=== PATIENT | male | born 1940 | race Caucasian/White ===

== ENCOUNTER 2023-06-02 10:55 | Inpatient (IN) | payer MEDICARE ==
--- NOTE | 2023-06-02 11:27 | ED ---
SOB HPI - General Source: patient Mode of arrival: ambulatory Limitations: no limitations <Bonnie Castillo - Last Filed: 06/02/23 11:17> <Iggy Pena - Last Filed: 06/03/23 07:13> - General Chief Complaint: Shortness of Breath Stated Complaint: sob Time Seen by Provider: 06/02/23 11:12 - History of Present Illness Initial Comments: Patient is 82 year old CM presenting with complaints of continued shortness of breath ongoing since 05/24/23 when he had COVID. He also complains of weight gain, activity intolerance, and lower extremity swelling. He did recently travel. He denies any chest pain, abdominal pain, nausea, vomiting, headache, dizziness, fevers or chills. (Bonnie Castillo) This is a 82-year-old male who has not followed up with in years. Patient states he had COVID at the beginning of May and ever since then he's been feeling generally tired and much more short of breath and all of a sudden he is accumulated fluid in his legs and his abdomen. Patient denies chest pain or palpitations but he does state that the shortness of breath is getting progressively worse. Patient denies any headache patient denies lightheadedness or dizziness. Patient denies any fever chills. Patient denies any abdominal pain patient denies nausea vomiting. Patient denies any history of kidney disease (Iggy Pena) - Related Data Home Medications Medication Instructions Recorded Confirmed Azithromycin [Zithromax Z Pack] See Taper PO DIRECTED 06/02/23 06/02/23 Famotidine [Pepcid] 20 mg PO BID 06/02/23 06/02/23 Allergies Allergy/AdvReac Type Severity Reaction Status Date / Time No Known Allergies Allergy Verified 06/02/23 14:44 Review of Systems ROS Other: All systems not noted in ROS Statement are negative. <Bonnie Castillo - Last Filed: 06/02/23 11:17> ROS Other: All systems not noted in ROS Statement are negative. <Iggy Pena - Last Filed: 06/03/23 07:13> ROS Statement: Those systems with pertinent positive or pertinent negative responses have been documented in the HPI. Past Medical History Past Medical History: No Reported History History of Any Multi-Drug Resistant Organisms: None Reported Past Surgical History: No Surgical Hx Reported Past Psychological History: No Psychological Hx Reported Smoking Status: Never smoker Past Alcohol Use History: Occasional Past Drug Use History: None Reported <Ravenna,Bonnie - Last Filed: 06/02/23 11:17> General Exam Limitations: no limitations <JonathanAngela - Last Filed: 06/02/23 11:17> <Iggy Pena - Last Filed: 06/03/23 07:13> - General Exam Comments Initial Comments: Visual Physical Exam Vital signs reviewed General: Well-appearing, nontoxic, no acute distress. Head: Normocephalic, atraumatic Eyes: PERRLA, EOMI ENT: Airway patent Chest: Nonlabored breathing Skin: No visual rash, normal skin tone Neuro: Alert and oriented 3 Musculoskeletal: No gross abnormalities I performed with the Quicknote portion Bonnie Castillo EXPORT PACKER-c (Bonnie Castillo) GENERAL: Patient is well-developed and well-nourished. Patient is nontoxic and well- hydrated and is in mild distress. ENT: Neck is soft and supple. No significant lymphadenopathy is noted. Oropharynx is clear. Moist mucous membranes. Neck has full range of motion without eliciting any pain. EYES: The sclera were anicteric and conjunctiva were pink and moist. Extraocular movements were intact and pupils were equal round and reactive to light. Eyelids were unremarkable. PULMONARY: Patient is decreased breath sounds on the right CARDIOVASCULAR: There is a regular rate and rhythm without any murmurs gallops or rubs. ABDOMEN: Soft and nontender with normal bowel sounds. SKIN: Skin is clear with no lesions or rashes and otherwise unremarkable. NEUROLOGIC: Patient is alert and oriented x3. Cranial nerves II through XII are grossly intact. Motor and sensory are also intact. Normal speech, volume and content. Symmetrical smile. MUSCULOSKELETAL: Normal extremities with adequate strength and full range of motion. 2+ edema LYMPHATICS: No significant lymphadenopathy is noted PSYCHIATRIC: Normal psychiatric evaluation. (Iggy Pena) Course Vital Signs 06/02/23 06/02/23 06/02/23 11:06 14:32 14:57 Temperature 98 F Pulse Rate 90 84 75 Respiratory 20 19 20 Rate Blood Pressure 190/44 173/90 O2 Sat by Pulse 95 97 Oximetry 06/02/23 06/02/2323 16:30 18:20 19:00 Temperature 97.3 F L Pulse Rate 77 80 57 L Respiratory 22 18 20 Rate Blood Pressure 158/95 161/88 148/80 O2 Sat by Pulse 97 96 95 Oximetry 06/02/23 06/02/23 06/02/23 20:00 21:00 23:28 Temperature Pulse Rate 61 70 69 Respiratory 20 20 19 Rate Blood Pressure 108/75 145/57 133/74 O2 Sat by Pulse 97 98 Oximetry 06/03/23 06/03/23 06/03/23 00:52 02:07 03:38 Temperature Pulse Rate 75 72 Respiratory 19 19 Rate Blood Pressure 145/88 139/72 140/60 O2 Sat by Pulse 97 97 Oximetry 06/03/23 06/03/23 06/03/23 04:41 05:16 06:00 Temperature Pulse Rate 76 54 L 46 L Respiratory 17 17 Rate Blood Pressure 131/40 131/70 134/66 O2 Sat by Pulse 96 96 Oximetry Medical Decision Making - Lab Data Result diagrams: 06/03/23 03:15 06/02/23 21:35 <Iggy Pena - Last Filed: 06/03/23 07:13> - Medical Decision Making EKG was interpreted by myself EKG shows atrial fibrillation at a rate of 72 bpm QRS is under 4 QT interval is 393 QTC is 417. Patient's EKG shows no ST segment elevation or depression Was pt. sent in by a medical professional or institution (, PA, EXPORT PACKER, urgent care, hospital, or senior living...) When possible be specific @ -[No] Did you speak to anyone other than the patient for history (EMS, parent, family, police, friend...)? What history was obtained from this source @ - gave some of the history Did you review nursing and triage notes (agree or disagree)? Why? @ -[I reviewed and agree with nursing and triage notes] Were old charts reviewed (outside hosp., previous admission, EMS record, old EKG, old radiological studies, urgent care reports/EKG's, senior living records)? Report findings @ -[No old charts were reviewed] Differential Diagnosis (chest pain, altered mental status, abdominal pain women, abdominal pain men, vaginal bleeding, weakness, fever, dyspnea, syncope, headache, dizziness, GI bleed, back pain, seizure, CVA, palpatations, mental health, musculoskeletal)? @ -Differential dyspnea EKG interpreted by me (3pts min.). @ -[As above] X-rays interpreted by me (1pt min.). @ -Chest x-ray shows a right-sided infiltrate with pleural effusion CT interpreted by me (1pt min.). @ -[None done] U/S interpreted by me (1pt. min.). @ -[None done] What testing was considered but not performed or refused? (CT, X-rays, U/S, labs)? Why? @ -[None] What meds were considered but not given or refused? Why? @ -[None] Did you discuss the management of the patient with other professionals (professionals i.e. , PA, EXPORT PACKER, lab, RT, psych nurse, web content & social media manager, instrumentation and controls designer, teacher, mobile patrol officer, case finisher)? Give summary @ -I spoke with the [facility] as well as multiple punch press operator I will admit the patient Was smoking cessation discussed for >3mins.? @ -[No] Was critical care preformed (if so, how long)? @ -[No] Were there social determinants of health that impacted care today? How? (Homelessness, low income, unemployed, alcoholism, drug addiction, transportation, low edu. Level, literacy, decrease access to med. care, fci, rehab)? @ -[No] Was there de-escalation of care discussed even if they declined (Discuss DNR or withdrawal of care, Hospice)? DNR status @ -[No] What co-morbidities impacted this encounter? (DM, HTN, Smoking, COPD, CAD, Cancer, CVA, ARF, Chemo, Hep., AIDS, mental health diagnosis, sleep apnea, morbid obesity)? @ -[None] Was patient admitted / discharged? Hospital course, mention meds given and route, prescriptions, significant lab abnormalities, going to OR and other pe rtinent info. @ -Patient is in A. fib is new onset patient also has renal failure and hypokalemia and hyponatremia. Patient will be admitted I consult nephrology. And I spoke to Mr. hospitalist agreed to accept the admission. Undiagnosed new problem with uncertain prognosis? @ -[No] Drug Therapy requiring intensive monitoring for toxicity (Heparin, Nitro, Insulin, Cardizem)? @ -[No] Were any procedures done? @ -[No] Diagnosis/symptom? @ -New-onset A. fib Acute, or Chronic, or Acute on Chronic? @ -Acute Uncomplicated (without systemic symptoms) or Complicated (systemic symptoms)? @ -Complicated Side effects of treatment? @ -[No] Exacerbation, Progression, or Severe Exacerbation? @ -[No] Poses a threat to life or bodily function? How? (Chest pain, [place], GA, pneumonia, PE, COPD, DKA, ARF, appy, cholecystitis, CVA, Diverticulitis, Homicidal, Suicidal, threat to staff... and all critical care pts) @ -Yes this could lead to poor perfusion and and organ dysfunction Diagnosis/symptom? @ -Acute renal failure Acute, or Chronic, or Acute on Chronic? @ -Acute Uncomplicated (without systemic symptoms) or Complicated (systemic symptoms)? @ -Complicated Side effects of treatment? @ -[none] Exacerbation, Progression, or Severe Exacerbation] @ -[no] Poses a threat to life or bodily function? @ -Yes this could lead to electrolyte abnormalities and Diagnosis/symptom? @ -Pneumonia Acute, or Chronic, or Acute on Chronic? @ -Acute Uncomplicated (without systemic symptoms) or Complicated (systemic symptoms)? @ -Complicated Side effects of treatment? @ -[none] Exacerbation, Progression, or Severe Exacerbation] @ -[no] Poses a threat to life or bodily function? @ -Yes this could lead to sepsis and end organ dysfunction (Iggy Pena) - Lab Data Lab Results 06/02/23 06/02/23 06/02/23 Range/Units 11:38 11:38 14:09 WBC 19.9 H (3.8-10.6) k/uL RBC 4.28 L (4.30-5.90) m/uL Hgb 14.0 (13.0-17.5) gm/dL Hct 41.8 (39.0-53.0) % MCV 97.6 (80.0-100.0) fL MCH 32.7 (25.0-35.0) pg MCHC 33.5 (31.0-37.0) g/dL RDW 13.7 (11.5-15.5) % Plt Count 419 (150-450) k/uL MPV 8.8 Neutrophils % 94 % Lymphocytes % 2 % Monocytes % 4 % Eosinophils % 0 % Basophils % 0 % Neutrophils # 18.7 H (1.3-7.7) k/uL Lymphocytes # 0.4 L (1.0-4.8) k/uL Monocytes # 0.7 (0-1.0) k/uL Eosinophils # 0.1 (0-0.7) k/uL Basophils # 0.0 (0-0.2) k/uL PT 11.8 (9.0-12.0) sec INR 1.1 (<1.2) APTT 28.0 (22.0-30.0) sec D-Dimer 10.69 H (<0.60) mg/L FEU Sodium 121 L (137-145) mmol/L Potassium 4.7 (3.5-5.1) mmol/L Chloride 87 L (98-107) mmol/L Carbon Dioxide 6 L* (22-30) mmol/L Anion Gap 28 mmol/L BUN 181 H* (9-20) mg/dL Creatinine 16.79 H* (0.66-1.25) mg/dL Est GFR (CKD-EPI)AfAm 3 (>60 ml/min/1.73 sqM) Est GFR (CKD-EPI)NonAf 2 (>60 ml/min/1.73 sqM) Glucose 120 H (74-99) mg/dL Calcium 8.8 (8.4-10.2) mg/dL Magnesium 2.8 H (1.6-2.3) mg/dL Total Bilirubin 0.8 (0.2-1.3) mg/dL AST 22 (17-59) U/L ALT 24 (4-49) U/L Alkaline Phosphatase 136 H (38-126) U/L Troponin I (0.000-0.034) ng/mL NT-Pro-B Natriuret Pep 4180 pg/mL Total Protein 7.2 (6.3-8.2) g/dL Albumin 3.5 (3.5-5.0) g/dL 06/02/23 Range/Units 14:09 WBC (3.8-10.6) k/uL RBC (4.30-5.90) m/uL Hgb (13.0-17.5) gm/dL Hct (39.0-53.0) % MCV (80.0-100.0) fL MCH (25.0-35.0) pg MCHC (31.0-37.0) g/dL RDW (11.5-15.5) % Plt Count (150-450) k/uL MPV Neutrophils % % Lymphocytes % % Monocytes % % Eosinophils % % Basophils % % Neutrophils # (1.3-7.7) k/uL Lymphocytes # (1.0-4.8) k/uL Monocytes # (0-1.0) k/uL Eosinophils # (0-0.7) k/uL Basophils # (0-0.2) k/uL PT (9.0-12.0) sec INR (<1.2) APTT (22.0-30.0) sec D-Dimer (<0.60) mg/L FEU Sodium (137-145) mmol/L Potassium (3.5-5.1) mmol/L Chloride (98-107) mmol/L Carbon Dioxide (22-30) mmol/L Anion Gap mmol/L BUN (9-20) mg/dL Creatinine (0.66-1.25) mg/dL Est GFR (CKD-EPI)AfAm (>60 ml/min/1.73 sqM) Est GFR (CKD-EPI)NonAf (>60 ml/min/1.73 sqM) Glucose (74-99) mg/dL Calcium (8.4-10.2) mg/dL Magnesium (1.6-2.3) mg/dL Total Bilirubin (0.2-1.3) mg/dL AST (17-59) U/L ALT (4-49) U/L Alkaline Phosphatase (38-126) U/L Troponin I 0.030 (0.000-0.034) ng/mL NT-Pro-B Natriuret Pep pg/mL Total Protein (6.3-8.2) g/dL Albumin (3.5-5.0) g/dL Disposition <Bonnie Castillo - Last Filed: 06/02/23 11:17> Time of Disposition: 14:31 <Iggy Pena - Last Filed: 06/03/23 07:13> Clinical Impression: New onset a-fib, Acute renal failure, Hypokalemia, Hypomagnesemia, Urinary retention Disposition: ADMITTED IP TO THIS HOSP
[2023-06-02 11:59] LABS: Basophils % (A) 0 %; Eosinophils # (A) 0.1 k/uL (0-0.7); Eosinophils % (A) 0 %; HCT 41.8 % (39.0-53.0); Lymphocytes # (A) 0.4 k/uL (1.0-4.8); Lymphocytes % (A) 2 %; MCH 32.7 pg (25.0-35.0); MCHC 33.5 g/dL (31.0-37.0); MCV 97.6 fL (80.0-100.0); Mean Platelet Volume 8.8; Monocytes # (A) 0.7 k/uL (0-1.0); Monocytes % (A) 4 %; Neutrophils # (A) 18.7 k/uL (1.3-7.7); Neutrophils % (A) 94 %; Platelet Count 419 k/uL (150-450); RBC 4.28 m/uL (4.30-5.90); RDW 13.7 % (11.5-15.5); WBC 19.9 k/uL (3.8-10.6)
--- NOTE | 2023-06-02 12:04 | XR ---
EXAMINATION TYPE: XR chest 2V DATE OF EXAM: 06/02/2023 COMPARISON: NONE TECHNIQUE: PA and lateral views submitted. HISTORY: Chest pain FINDINGS: Right lower lobe consolidation and small effusion. Heart is enlarged. There is no pneumothorax. Hyper inflation suggests COPD. Osseous structures demonstrate hypertrophic and degenerative changes of the spine. Arthropathy of the shoulders. Linear changes left lung base most typical of atelectasis. IMPRESSION: 1. A right lower lobe infiltrate correlate for pneumonia.
[2023-06-02 12:16] LABS: ALT 24 U/L (4-49); AST 22 U/L (17-59); Albumin 3.5 g/dL (3.5-5.0); Alkaline Phosphatase 136 U/L (38-126); Anion Gap 28 mmol/L; Calcium 8.8 mg/dL (8.4-10.2); Chloride 87 mmol/L (98-107); Glucose 120 mg/dL (74-99); Magnesium 2.8 mg/dL (1.6-2.3); Potassium 4.7 mmol/L (3.5-5.1); Sodium 121 mmol/L (137-145); Total Bilirubin 0.8 mg/dL (0.2-1.3); Total Protein 7.2 g/dL (6.3-8.2)
[2023-06-02 12:21] LABS: African American GFR (CKD) 3 (>60 ml/min/1.73 sqM); Non-African American GFR(CKD) 2 (>60 ml/min/1.73 sqM)
[2023-06-02 12:23] LABS: NT-Pro-B-Type Natriuretic Pept 4180 pg/mL
[2023-06-02 12:29] LABS: Blood Urea Nitrogen 181 mg/dL (9-20); Carbon Dioxide 6 mmol/L (22-30)
[2023-06-02] MEDS ORDERED: cefTRIAXone IN SWFI 1,000 MG/10 ML SYRINGE IVP STA (14:10)
[2023-06-02] MEDS ORDERED: SODIUM BICARB 8.4% 50 ML SYR (1 MEQ/ML) IV STA (14:32)
[2023-06-02] MEDS ORDERED: PNEUMONIA PROTOCOL UTILIZED 1 EACH MISC PO PRN (14:33)
[2023-06-02] MEDS ORDERED: AZITHROMYCIN 500 MG in SODIUM CHLORIDE 0.9% 250 ML IVPB STA (14:33)
[2023-06-02 15:23] LABS: INR 1.1 (<1.2); Prothrombin Time 11.8 sec (9.0-12.0)
[2023-06-02] MEDS ORDERED: HEPARIN SODIUM 1,000 UN/ML (10ML VL) IV ONE (15:30)
[2023-06-02] MEDS ORDERED: HEPARIN SOD,PORK IN 0.45% NACL 25,000 UNIT in 0.45% NACL 1 250ML.BAG IV SCH (15:30)
[2023-06-02] MEDS ORDERED: DEXTROSE 5% IN WATER 1,000 ML with SODIUM BICARB (1 MEQ/ML) 150 ML IV ONE (16:00)
[2023-06-02 22:06] LABS: ALT 22 U/L (4-49); AST 21 U/L (17-59); Albumin 2.9 g/dL (3.5-5.0); Alkaline Phosphatase 113 U/L (38-126); Anion Gap 20 mmol/L; Calcium 8.3 mg/dL (8.4-10.2); Carbon Dioxide 13 mmol/L (22-30); Chloride 94 mmol/L (98-107); Glucose 105 mg/dL (74-99); Potassium 3.8 mmol/L (3.5-5.1); Sodium 127 mmol/L (137-145); Total Bilirubin 0.7 mg/dL (0.2-1.3); Total Protein 6.3 g/dL (6.3-8.2)
[2023-06-02 22:12] LABS: African American GFR (CKD) 3 (>60 ml/min/1.73 sqM); Non-African American GFR(CKD) 3 (>60 ml/min/1.73 sqM)
[2023-06-02 22:15] LABS: Blood Urea Nitrogen 160 mg/dL (9-20)
--- NOTE | 2023-06-02 23:15 | ED ---
SOB HPI - General Chief Complaint: Shortness of Breath Stated Complaint: sob Time Seen by Provider: 06/02/23 11:12 Source: patient Mode of arrival: ambulatory Limitations: no limitations - History of Present Illness Initial Comments: Patient is an 82 yo CM presenting to the ER for complaints of increased shortness of breath ongoing since having COVID on May 24, 2023 along with decreased activity intolerance, weight gain and lower extremity swelling. He denies any chest pain, abdominal pain, nausea, vomiting, diaphoresis, headache, dizziness, fevers or chills. - Related Data Allergies Allergy/AdvReac Type Severity Reaction Status Date / Time No Known Allergies Allergy Verified 06/02/23 11:10 Review of Systems ROS Statement: Those systems with pertinent positive or pertinent negative responses have been documented in the HPI. ROS Other: All systems not noted in ROS Statement are negative. Past Medical History Past Medical History: No Reported History History of Any Multi-Drug Resistant Organisms: None Reported Past Surgical History: No Surgical Hx Reported Past Psychological History: No Psychological Hx Reported Smoking Status: Never smoker Past Alcohol Use History: Occasional Past Drug Use History: None Reported General Exam Limitations: no limitations Course Vital Signs 06/02/23 11:06 Temperature 98 F Pulse Rate 90 Respiratory 20 Rate Blood Pressure 190/44 O2 Sat by Pulse 95 Oximetry Disposition Referrals: None,Stated [Primary Care Provider] - 1-2 days
[2023-06-03] MEDS ORDERED: HEPARIN SODIUM 1,000 UN/ML (10ML VL) IV PRN (00:56)
[2023-06-03] MEDS ORDERED: ACETAMINOPHEN TAB 325 MG TAB PO PRN (00:57)
[2023-06-03] MEDS ORDERED: ONDANSETRON 4 MG/2 ML VIAL IVP PRN (00:58)
[2023-06-03] MEDS ORDERED: HEPARIN SOD,PORK IN 0.45% NACL 25,000 UNIT in 0.45% NACL 1 250ML.BAG IV SCH (01:00)
--- NOTE | 2023-06-03 02:24 | P.HPIM ---
History of Present Illness H&P Date: 06/02/23 Chief Complaint: Weight gain and leg swelling Patient is a 82-year-old male without significant past medical history and recent COVID-19 infection since 05/24/2023 presents to ER with complaints of generalized weakness, loss of appetite, increased leg swelling and weight gain and shortness of breath. Patient denies any complaints of fever or chills. No nausea vomiting abdominal pain or diarrhea. Denies any dizziness or lightheadedness. Patient is not on follow-up with primary care physician for several years. Since COVID-19 infection recently patient has been having shortness of breath and worsening leg swelling and increased abdominal girth. Denies any palpitatio ns. No dizziness or lightheadedness. No palpitations. Patient is also having decreased urine output. No prior history of chronic kidney disease. Chest x-ray showed right lower lobe infiltrate correlate for pneumonia. Laboratory data showed WBC 19.9 hemoglobin 14.0 and platelets 419 neutrophils 1 8.7 Sodium 121 potassium 4.7 chloride 87 bicarb is 6 BUN 181 and creatinine 16.7 and blood sugar is 120 Magnesium 2.8 and alk phos 136 and proBNP 4180 and troponin 0.030 and albumin 3.5. D-dimer is 10.69 EKG showed atrial fibrillation with aberrant conduction or ventricular premature complexes. Acute kidney injury. Possibly ATN. Anion gap metabolic acidosis Hyponatremia likely hypovolemic hypoosmolar New onset atrial fibrillation Elevated BNP level 4180 Recent COVID-19 infection since 05/24/2023 Generalized weakness, weight gain and leg swelling and shortness of breath Right lower lobe pneumonia DVT prophylaxis patient is already on heparin drip Plan: Patient will be continued on bicarb drip and gentle IV hydration. Patient was started on heparin drip due to new onset atrial fibrillation. Continuous telemetry monitoring. Continue with antibiotics azithromycin and ceftriaxone and follow-up procalcitonin level. Ultrasound renal was ordered. Continue to monitor CBC and BMP. Cardiology and nephrology was consulted for further evaluation. Prognosis is guarded at this time. Past Medical History Past Medical History: No Reported History History of Any Multi-Drug Resistant Organisms: None Reported Past Surgical History: No Surgical Hx Reported Past Psychological History: No Psychological Hx Reported Smoking Status: Never smoker Past Alcohol Use History: Occasional Past Drug Use History: None Reported Medications and Allergies Home Medications Medication Instructions Recorded Confirmed Type Azithromycin [Zithromax Z Pack] See Taper PO DIRECTED 06/02/23 06/02/23 History Famotidine [Pepcid] 20 mg PO BID 06/02/23 06/02/23 History Allergies Allergy/AdvReac Type Severity Reaction Status Date / Time No Known Allergies Allergy Verified 06/02/23 14:44 Physical Exam Vitals: Vital Signs Temp Pulse Resp BP Pulse Ox 06/02/23 18:20 80 18 161/88 96 06/02/23 16:30 97.3 F L 77 22 158/95 97 06/02/23 14:57 75 20 173/90 97 06/02/23 11:06 98 F 90 20 190/44 95 Intake and Output 06/02/23 06/02/23 06/02/23 06:59 14:59 22:59 Output Total 3800 Balance -3800 Output: Urine 3800 Other: Weight 79.379 kg Results CBC & Chem 7: 06/02/23 11:38 06/02/23 21:35 Labs: Abnormal Lab Results - Last 24 Hours (Table) 06/02/23 06/02/23 06/02/23 Range/Units 11:38 11:38 14:09 WBC 19.9 H (3.8-10.6) k/uL RBC 4.28 L (4.30-5.90) m/uL Neutrophils # 18.7 H (1.3-7.7) k/uL Lymphocytes # 0.4 L (1.0-4.8) k/uL D-Dimer 10.69 H (<0.60) mg/L FEU Sodium 121 L (137-145) mmol/L Chloride 87 L (98-107) mmol/L Carbon Dioxide 6 L* (22-30) mmol/L BUN 181 H* (9-20) mg/dL Creatinine 16.79 H* (0.66-1.25) mg/dL Glucose 120 H (74-99) mg/dL Magnesium 2.8 H (1.6-2.3) mg/dL Alkaline Phosphatase 136 H (38-126) U/L Thrombosis Risk Factor Assmnt - DVT/VTE Prophylaxis DVT/VTE Prophylaxis: Pharmacologic Prophylaxis ordered Assessment and Plan Time with Patient: Greater than 30
[2023-06-03 03:35] LABS: Basophils % (A) 0 %; Eosinophils # (A) 0.1 k/uL (0-0.7); Eosinophils % (A) 1 %; HCT 36.1 % (39.0-53.0); HGB 12.5 gm/dL (13.0-17.5); Lymphocytes # (A) 0.5 k/uL (1.0-4.8); Lymphocytes % (A) 2 %; MCH 33.2 pg (25.0-35.0); MCHC 34.6 g/dL (31.0-37.0); MCV 95.9 fL (80.0-100.0); Mean Platelet Volume 8.1; Monocytes % (A) 5 %; Neutrophils # (A) 18.1 k/uL (1.3-7.7); Neutrophils % (A) 91 %; Platelet Count 344 k/uL (150-450); RBC 3.77 m/uL (4.30-5.90); RDW 13.3 % (11.5-15.5); WBC 19.9 k/uL (3.8-10.6)
[2023-06-03 06:48] LABS: Glucose,Whole Blood 120 mg/dL (70-110)
[2023-06-03 07:59] LABS: Basophils % (A) 0 %; Eosinophils # (A) 0.1 k/uL (0-0.7); Eosinophils % (A) 1 %; HCT 36.1 % (39.0-53.0); HGB 12.4 gm/dL (13.0-17.5); Lymphocytes # (A) 0.4 k/uL (1.0-4.8); Lymphocytes % (A) 2 %; MCHC 34.2 g/dL (31.0-37.0); MCV 96.3 fL (80.0-100.0); Monocytes # (A) 0.8 k/uL (0-1.0); Monocytes % (A) 4 %; Neutrophils # (A) 16.1 k/uL (1.3-7.7); Neutrophils % (A) 92 %; Platelet Count 354 k/uL (150-450); RBC 3.75 m/uL (4.30-5.90); RDW 13.2 % (11.5-15.5); WBC 17.5 k/uL (3.8-10.6)
[2023-06-03 08:11] LABS: African American GFR (CKD) 8 (>60 ml/min/1.73 sqM); Anion Gap 16 mmol/L; Calcium 8.1 mg/dL (8.4-10.2); Carbon Dioxide 16 mmol/L (22-30); Chloride 103 mmol/L (98-107); Glucose 105 mg/dL (74-99); Non-African American GFR(CKD) 7 (>60 ml/min/1.73 sqM); Sodium 135 mmol/L (137-145)
--- NOTE | 2023-06-03 08:17 | XR ---
EXAMINATION TYPE: XR chest 1V portable DATE OF EXAM: 06/03/2023 COMPARISON: 06/02/2023 HISTORY: Cough TECHNIQUE: Single frontal view of the chest is obtained. FINDINGS: Diffuse interstitial pattern of the right lower lobe consolidation. Subsegmental changes l eft lung base. Tiny right effusion. Heart is enlarged. Atherosclerotic change aorta. Underlying COPD. No pneumothorax. Diffuse osteopenia noted throughout the shoulders. Degenerative changes. IMPRESSION: 1. Dense stable right lower lobe infiltrate and small effusion. There is interstitial pattern on toda y's exam which may be technical rather than representing interval development of CHF correlate clinic ally.
--- NOTE | 2023-06-03 08:22 | US ---
EXAMINATION TYPE: US kidneys/renal and bladder DATE OF EXAM: 06/03/2023 COMPARISON: NONE CLINICAL INDICATION: Male, 82 years old with history of JEANIE; JEANIE EXAM MEASUREMENTS: Right Kidney: 12.6 x 7.1 x 5.8 cm Left Kidney: 13.4 x 7.3 x 6.3 cm Right Kidney: Kidney enlarged, Dilated renal pelvis, with mild hydro Left Kidney: Kidney enlarged, dilated renal pelvis Bladder: [place] distended with cath in place, diverticula, large mass vs. debris at dependent portion Bilateral Jets seen: No IMPRESSION: Mild bilateral hydronephrosis. There appears to be evidence of large mass dependent portion of the bl adder correlate clinically.
[2023-06-03 08:40] LABS: Blood Urea Nitrogen 124 mg/dL (9-20)
[2023-06-03 08:43] LABS: Potassium 3.5 mmol/L (3.5-5.1)
[2023-06-03] MEDS: AZITHROMYCIN 500 MG TAB PO SCH (10:12)
[2023-06-03] MEDS ORDERED: POTASSIUM CHLORIDE ER 20 MEQ TAB.ER PO STA (11:09)
[2023-06-03 12:23] LABS: Phosphorus 5.6 mg/dL (2.5-4.5)
--- NOTE | 2023-06-03 12:52 | NM ---
EXAMINATION TYPE: NM pul vent and perfuse DATE OF EXAM: 06/03/2023 CLINICAL INDICATION: Male, 82 years old with history of SOB, elevated D-dimer.; HISTORY: Shortness of breath TECHNIQUE: Utilizing inhalation of 68.9 mCi Tc 99m DTPA aerosol and intravenous injection of 5.2 mCi of Tc 99m MAA, ventilation and perfusion images are acquired post injection in multiple projections. FINDINGS: There is central distribution of radiotracer compatible with COPD. There are a few matched defects se en within the periphery of the lungs. No perfusion mismatch is identified. IMPRESSION: Low probability for pulmonary embolism.
--- NOTE | 2023-06-03 12:57 | P.NPCON ---
History of Present Illness - Reason for Consult acute renal failure - History of Present Illness Patient is an 82-year-old male with no significant past medical history. He is admitted to the hospital with complaints of increased weakness and loss of appetite. Patient stated that he was also slightly more short of breath. There is history of recent COVID-19 infection on 05/24/2023. Patient denied any urinary symptoms There is no history of prostatic issues. Patient is noted to have a serum creatinine of 16.7 on initial admission. A Shaikh catheter was placed and patient had 3.8 L of urine on initial Shaikh catheter placement. About 7.9 L of urine documented. Currently urine is bloody. Ultrasound shows evidence of bilateral hydronephrosis. No previous labs available for comparison. Patient is currently maintained on bicarb drip. He states he is feeling better. Blood pressure was not low. No history of use of NSAIDs. Review of Systems As per HPI Past Medical History Past Medical History: No Reported History Additional Past Medical History / Comment(s): new afib. this admission (06/03/23) History of Any Multi-Drug Resistant Organisms: None Reported Past Surgical History: Appendectomy Additional Past Surgical History / Comment(s): claudia. catearact surg. Past Anesthesia/Blood Transfusion Reactions: No Reported Reaction Additional Past Anesthesia/Blood Transfusion Reaction / Comment(s): never received transfusion Past Psychological History: No Psychological Hx Reported Smoking Status: Never smoker Past Alcohol Use History: Occasional Past Drug Use History: None Reported - Past Family History Father Family Medical History: CVA/TIA Mother Family Medical History: Myocardial Infarction ([place]) Medications and Allergies Home Medications Medication Instructions Recorded Confirmed Type Azithromycin [Zithromax Z Pack] See Taper PO DIRECTED 06/02/23 06/02/23 History Famotidine [Pepcid] 20 mg PO BID 06/02/23 06/02/23 History Allergies Allergy/AdvReac Type Severity Reaction Status Date / Time No Known Allergies Allergy Verified 06/02/23 14:44 Physical Exam Vitals: Vital Signs Temp Pulse Pulse Resp BP BP Pulse Ox 06/03/23 08:00 98.1 F 80 22 148/76 95 06/03/23 07:00 97.2 F L 54 L 22 159/80 95 06/03/23 06:00 46 L 17 134/66 96 06/03/23 05:16 54 L 17 131/70 96 06/03/23 04:41 76 131/40 06/03/23 03:38 140/60 06/03/23 02:07 72 19 139/72 97 06/03/23 00:52 75 19 145/88 97 06/02/23 23:28 69 19 133/74 06/02/23 21:00 70 20 145/57 98 06/02/23 20:00 61 20 108/75 97 06/02/23 19:00 57 L 20 148/80 95 06/02/23 18:20 80 18 161/88 96 06/02/23 16:30 97.3 F L 77 22 158/95 97 06/02/23 14:57 75 20 173/90 97 06/02/23 14:32 84 19 Intake and Output 06/02/23 06/03/23 06/03/23 22:59 06:59 14:59 Intake Total 82.156 300 Output Total 3800 4150 1900 Balance -3717.844 -4150 -1600 Intake: IV 300 Dextrose 5% in Water 1, 300 000 ml @ 75 mls/hr IV . 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 Acute kidney injury secondary to obstructive uropathy with bilateral hydronephrosis on ultrasound and about 4 L of urine obtained on initial Shaikh ca theter placement. Continue with Shaikh catheter and IV fluids 2. Anion gap metabolic acidosis secondary to advanced renal failure and obstructive uropathy, currently improving 3. Hypovolemic hyponatremia currently improved with IV fluids 4. Hematuria secondary to bladder decompression and relief of chronic obstruction and distention. 5. History of recent cold but infection on 05/24/2023 Plan: Continue with bicarb drip Consult urology Repeat labs in a.m. Continue with Shaikh catheter Avoid nephrotoxic agents. Thank you for the consultation. We will continue to follow the patient with you during his hospitalization.
--- NOTE | 2023-06-03 13:19 | P.GSCN ---
History of Present Illness Consult date: 06/03/23 History of present illness: 82-year-old gentleman who came into the hospital because of weakness and shortness of breath. He is found to be in acute renal failure. A catheters placed and he has been diuresing[ 7 liters in 24 hours]. His creatinine went from 13.6-7 in 24 hours. He has had gross hematuria. On ultrasound he is found to have bilateral hydronephrosis and a mass in the bladder. Upon inspecting the ultrasound I question whether the catheter is in the prostate or in the bladder. I'm uncertain as to whether the mass seen on ultrasound is a mass or just blood and blood clot. He has not seen a doctor in years. He has been having difficulty with urination for months.. His stream has been slow, frequent, incomplete with some incontinence. the hematuria is new. Review of Systems All systems: negative - Constitutional Denies fever, Denies weight loss - EENT Eyes: denies blurred vision Ears, nose, mouth and throat: Denies dysphagia - Cardiovascular Denies chest pain, Denies shortness of breath - Respiratory Denies cough, Denies 7 - Gastrointestinal Reports as per HPI - Genitourinary Denies dysuria, Denies hematuria - Integumentary Denies rash, Denies unusual bruising - Neurological Denies headaches, Denies syncope - Hematologic/Lymphatic Denies easy bleeding, Denies easy bruising Past Medical History Past Medical History: No Reported History Additional Past Medical History / Comment(s): new afib. this admission (06/03/23) History of Any Multi-Drug Resistant Organisms: None Reported Past Surgical History: Appendectomy Additional Past Surgical History / Comment(s): claudia. catearact surg. Past Anesthesia/Blood Transfusion Reactions: No Reported Reaction Additional Past Anesthesia/Blood Transfusion Reaction / Comm: never received transfusion Past Psychological History: No Psychological Hx Reported Smoking Status: Never smoker Past Alcohol Use History: Occasional Past Drug Use History: None Reported - Past Family History Father Family Medical History: CVA/TIA Mother Family Medical History: Myocardial Infarction ([place]) Medications and Allergies Home Medications Medication Instructions Recorded Confirmed Type Azithromycin [Zithromax Z Pack] See Taper PO DIRECTED 06/02/23 06/02/23 History Famotidine [Pepcid] 20 mg PO BID 06/02/23 06/02/23 History Allergies Allergy/AdvReac Type Severity Reaction Status Date / Time No Known Allergies Allergy Verified 06/02/23 14:44 Surgical - Exam Vital Signs Temp Pulse Resp BP Pulse Ox 98 F 90 20 190/44 95 06/02/23 11:06 06/02/23 11:06 06/02/23 11:06 06/02/23 11:06 06/02/23 11:06 - General well developed, well nourished, no distress - Eyes PERRL - ENT no hearing loss - Neck trachea midline - Respiratory normal expansion - Cardiovascular Rhythm: irregularly irregular - Abdomen Abdomen: soft, non tender - Genitourinary indwelling catheter with dark old blood. Prostate exam will be deferred til later at the patient request - Integumentary no growths - Neurologic normal sensation - Musculoskeletal normal posture - Psychiatric oriented to time, oriented to person, oriented to place, speech is normal, m karson intact Results - Labs 06/03/23 07:32 06/03/23 07:32 Abnormal Lab Results - Last 24 Hours (Table) 06/02/23 06/02/23 06/02/23 Range/Units 14:09 21:35 21:35 WBC (3.8-10.6) k/uL RBC (4.30-5.90) m/uL Hgb (13.0-17.5) gm/dL Hct (39.0-53.0) % Neutrophils # (1.3-7.7) k/uL Lymphocytes # (1.0-4.8) k/uL APTT 79.2 H (22.0-30.0) sec D-Dimer 10.69 H (<0.60) mg/L FEU Sodium 127 L (137-145) mmol/L Chloride 94 L (98-107) mmol/L Carbon Dioxide 13 L (22-30) mmol/L BUN 160 H* (9-20) mg/dL Creatinine 13.56 H* (0.66-1.25) mg/dL Glucose 105 H (74-99) mg/dL POC Glucose (mg/dL) (70-110) mg/dL Calcium 8.3 L (8.4-10.2) mg/dL Phosphorus (2.5-4.5) mg/dL Albumin 2.9 L (3.5-5.0) g/dL Procalcitonin (0.02-0.09) ng/mL 06/03/23 06/03/23 06/03/23 Range/Units 03:15 03:15 06:46 WBC 19.9 H (3.8-10.6) k/uL RBC 3.77 L (4.30-5.90) m/uL Hgb 12.5 L (13.0-17.5) gm/dL Hct 36.1 L (39.0-53.0) % Neutrophils # 18.1 H (1.3-7.7) k/uL Lymphocytes # 0.5 L (1.0-4.8) k/uL APTT (22.0-30.0) sec D-Dimer (<0.60) mg/L FEU Sodium (137-145) mmol/L Chloride (98-107) mmol/L Carbon Dioxide (22-30) mmol/L BUN (9-20) mg/dL Creatinine (0.66-1.25) mg/dL Glucose (74-99) mg/dL POC Glucose (mg/dL) 120 H (70-110) mg/dL Calcium (8.4-10.2) mg/dL Phosphorus (2.5-4.5) mg/dL Albumin (3.5-5.0) g/dL Procalcitonin 0.51 H (0.02-0.09) ng/mL 06/03/23 06/03/23 06/03/23 Range/Units 07:32 07:32 07:32 WBC 17.5 H (3.8-10.6) k/uL RBC 3.75 L (4.30-5.90) m/uL Hgb 12.4 L (13.0-17.5) gm/dL Hct 36.1 L (39.0-53.0) % Neutrophils # 16.1 H (1.3-7.7) k/uL Lymphocytes # 0.4 L (1.0-4.8) k/uL APTT 33.9 H (22.0-30.0) sec D-Dimer (<0.60) mg/L FEU Sodium 135 L (137-145) mmol/L Chloride (98-107) mmol/L Carbon Dioxide 16 L (22-30) mmol/L BUN 124 H* (9-20) mg/dL Creatinine 7.04 H* (0.66-1.25) mg/dL Glucose 105 H (74-99) mg/dL POC Glucose (mg/dL) (70-110) mg/dL Calcium 8.1 L (8.4-10.2) mg/dL Phosphorus 5.6 H (2.5-4.5) mg/dL Albumin (3.5-5.0) g/dL Procalcitonin (0.02-0.09) ng/mL Diabetes panel 06/02/23 06/03/23 Range/Units 21:35 07:32 Sodium 127 L 135 L (137-145) mmol/L Potassium 3.8 3.5 (3.5-5.1) mmol/L Chloride 94 L 103 (98-107) mmol/L Carbon Dioxide 13 L 16 L (22-30) mmol/L BUN 160 H* 124 H* (9-20) mg/dL Creatinine 13.56 H* 7.04 H* (0.66-1.25) mg/dL Glucose 105 H 105 H (74-99) mg/dL Calcium 8.3 L 8.1 L (8.4-10.2) mg/dL AST 21 (17-59) U/L ALT 22 (4-49) U/L Alkaline Phosphatase 113 (38-126) U/L Total Protein 6.3 (6.3-8.2) g/dL Albumin 2.9 L (3.5-5.0) g/dL Calcium panel 06/02/23 06/03/23 Range/Units 21:35 07:32 Calcium 8.3 L 8.1 L (8.4-10.2) mg/dL Phosphorus 5.6 H (2.5-4.5) mg/dL Albumin 2.9 L (3.5-5.0) g/dL Pituitary panel 06/02/23 06/03/23 Range/Units 21:35 07:32 Sodium 127 L 135 L (137-145) mmol/L Potassium 3.8 3.5 (3.5-5.1) mmol/L Chloride 94 L 103 (98-107) mmol/L Carbon Dioxide 13 L 16 L (22-30) mmol/L BUN 160 H* 124 H* (9-20) mg/dL Creatinine 13.56 H* 7.04 H* (0.66-1.25) mg/dL Glucose 105 H 105 H (74-99) mg/dL Calcium 8.3 L 8.1 L (8.4-10.2) mg/dL Adrenal panel 06/02/23 06/03/23 Range/Units 21:35 07:32 Sodium 127 L 135 L (137-145) mmol/L Potassium 3.8 3.5 (3.5-5.1) mmol/L Chloride 94 L 103 (98-107) mmol/L Carbon Dioxide 13 L 16 L (22-30) mmol/L BUN 160 H* 124 H* (9-20) mg/dL Creatinine 13.56 H* 7.04 H* (0.66-1.25) mg/dL Glucose 105 H 105 H (74-99) mg/dL Calcium 8.3 L 8.1 L (8.4-10.2) mg/dL Total Bilirubin 0.7 (0.2-1.3) mg/dL AST 21 (17-59) U/L ALT 22 (4-49) U/L Alkaline Phosphatase 113 (38-126) U/L Total Protein 6.3 (6.3-8.2) g/dL Albumin 2.9 L (3.5-5.0) g/dL - Imaging US - kidney/bladder: report reviewed, image reviewed Assessment and Plan Assessment: Impression: urine retention with acute renal failure and secondary hydronephrosis. Groa hematuria of uncertain etiology including cath trauma, bladder over distention, enlarged prostate, bladder mass Recommendations; the patient has improved with his creatinine over the last 24 hours. He should continue with the indwelling catheter. Medical and cardiac problems need to be addressed first. As long as the bleeding clears and does not cause problems with catheter I would not intervene until the medical status stabilizes. He will need cystoscopy in the future to clarify size of the prostate as well as whether there is a bladder mass. I will do a rectal examination at a later date.
[2023-06-03] MEDS: METOPROLOL TARTRATE 12.5 MG TAB PO SCH ×2 (13:40→21:23)
--- NOTE | 2023-06-03 13:51 | P.CRDCN ---
History of Present Illness Consult date: 06/03/23 Chief complaint: Shortness of breath History of present illness: The patient is an 82-year-old gentleman was no significant past medical history presented to the hospital after he was brought with his because he was not feeling well. He was diagnosed was COVID-19 infection few weeks ago and since then he did not feel well. [place] his noticed that he has been more short of breath with exertion and lately developed bilateral lower extremity edema and also he was feeling tired and fatigued and has no energy. No symptoms of any chest pain or chest discomfort or dizziness or lightheadedness or any feeling of heart racing or fluttering and no presyncope or syncope. He gained significant amount of weight. He also developed some abdominal girth. Because of that the decided to bring the patient to the hospital for further evaluation. He underwent a blood work in the emergency department and that came in to be abnormal with evidence of acute renal failure. The patient is not aware of any prior history of chronic kidney disease and never seen any legal researcher before. Also the EKG revealed atrial fibrillation which is known to have as well. The patient is asymptomatic from that standpoint of view. Further investigation was a chest x-ray and that showed evidence of volume overload. NT proBNP came in to be around 5000. Troponin was not performed. 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 We consulted to see the patient because of the atrial fibrillation. Subsequently the patient wasn't started on IV heparin but he developed severe hematuria and currently that is under investigation by the urology service. Heparin is on hold at this point. The examination is remarkable for regular rhythm with a systolic murmur at the right and left upper sternal border and mild bilateral lower extremity edema and diminished breathing sounds bilaterally. Assessment Acute renal failure currently under investigation Heart failure exacerbation of unknown etiology at this point Evidence of volume overload Atrial fibrillation of unknown etiology at this point. The heart rate appeared to be controlled Hematuria Recently diagnosed as of COVID-19 infection Plan Start the patient on small dose of beta geronimo Hold any oral or IV anticoagulation in the light of hematuria to that is inve stigated Obtain further cardiac investigation including an echocardiogram Obtain serial cardiac enzymes to rule out acute coronary event Continue monitor the kidney function and electrolytes Renal function to be addressed by the nephrology team Follow-up with the patient Past Medical History Past Medical History: No Reported History Additional Past Medical History / Comment(s): new afib. this admission (06/03/23) History of Any Multi-Drug Resistant Organisms: None Reported Past Surgical History: Appendectomy Additional Past Surgical History / Comment(s): claudia. catearact surg. Past Anesthesia/Blood Transfusion Reactions: No Reported Reaction Additional Past Anesthesia/Blood Transfusion Reaction / Comment(s): never received transfusion Past Psychological History: No Psychological Hx Reported Smoking Status: Never smoker Past Alcohol Use History: Occasional Past Drug Use History: None Reported - Past Family History Father Family Medical History: CVA/TIA Mother Family Medical History: Myocardial Infarction ([place]) Medications and Allergies Home Medications Medication Instructions Recorded Confirmed Type Azithromycin [Zithromax Z Pack] See Taper PO DIRECTED 06/02/23 06/02/23 History Famotidine [Pepcid] 20 mg PO BID 06/02/23 06/02/23 History Allergies Allergy/AdvReac Type Severity Reaction Status Date / Time No Known Allergies Allergy Verified 06/02/23 14:44 Physical Exam Vitals: Vital Signs Temp Pulse Pulse Resp BP BP Pulse Ox 06/03/23 08:00 98.1 F 80 22 148/76 95 06/03/23 07:00 97.2 F L 54 L 22 159/80 95 06/03/23 06:00 46 L 17 134/66 96 06/03/23 05:16 54 L 17 131/70 96 06/03/23 04:41 76 131/40 06/03/23 03:38 140/60 06/03/23 02:07 72 19 139/72 97 06/03/23 00:52 75 19 145/88 97 06/02/23 23:28 69 19 133/74 06/02/23 21:00 70 20 145/57 98 06/02/23 20:00 61 20 108/75 97 06/02/23 19:00 57 L 20 148/80 95 06/02/23 18:20 80 18 161/88 96 06/02/23 16:30 97.3 F L 77 22 158/95 97 06/02/23 14:57 75 20 173/90 97 06/02/23 14:32 84 19 Intake and Output 06/02/23 06/03/23 06/03/23 22:59 06:59 14:59 Intake Total 82.156 300 Output Total 3800 4150 1900 Balance -3717.844 -4150 -1600 Intake: IV 300 Dextrose 5% in Water 1, 300 000 ml @ 75 mls/hr IV . [id number] VESTA with Sodium Bicarb (1 Meq/ml) 150 ml Rx#:[id number] Intake, IV Titration 82.156 Amount Heparin Sod,Pork in 0.45% 82.156 NaCl 25,000 unit In 0.45 % NaCl 1 250ml.bag @ 18 UNITS/KG/HR 14.288 mls/hr IV .[id number] VESTA Rx#: [id number] Output: Urine 3800 4150 1900 Other: Voiding Method Indwelling Catheter Indwelling Catheter Weight 79.379 kg Results 06/03/23 07:32 06/03/23 07:32 Cardiac Enzymes 06/02/23 06/02/23 Range/Units 14:09 21:35 AST 21 (17-59) U/L Troponin I 0.030 (0.000-0.034) ng/mL Coagulation 06/02/23 06/02/23 06/03/23 Range/Units 14:09 21:35 07:32 PT 11.8 (9.0-12.0) sec APTT 28.0 79.2 H 33.9 H (22.0-30.0) sec CBC 06/03/23 06/03/23 Range/Units 03:15 07:32 WBC 19.9 H 17.5 H (3.8-10.6) k/uL RBC 3.77 L 3.75 L (4.30-5.90) m/uL Hgb 12.5 L 12.4 L (13.0-17.5) gm/dL Hct 36.1 L 36.1 L (39.0-53.0) % Plt Count 344 354 (150-450) k/uL Comprehensive Metabolic Panel 06/02/23 06/03/23 Range/Units 21:35 07:32 Sodium 127 L 135 L (137-145) mmol/L Potassium 3.8 3.5 (3.5-5.1) mmol/L Chloride 94 L 103 (98-107) mmol/L Carbon Dioxide 13 L 16 L (22-30) mmol/L BUN 160 H* 124 H* (9-20) mg/dL Creatinine 13.56 H* 7.04 H* (0.66-1.25) mg/dL Glucose 105 H 105 H (74-99) mg/dL Calcium 8.3 L 8.1 L (8.4-10.2) mg/dL AST 21 (17-59) U/L ALT 22 (4-49) U/L Alkaline Phosphatase 113 (38-126) U/L Total Protein 6.3 (6.3-8.2) g/dL Albumin 2.9 L (3.5-5.0) g/dL Current Medications Generic Name Dose Route Start Last Admin Trade Name Freq PRN Reason Stop Dose Admin Acetaminophen 650 mg 06/03/23 00:57 Acetaminophen Tab 325 Mg Tab PO Q6HR PRN Fever and/ or Pain Azithromycin 500 mg 06/03/23 09:00 06/03/23 10:12 Azithromycin 500 Mg Tab PO 06/04/23 09:01 500 mg DAILY VESTA Administration Protocol Ceftriaxone Sodium 2 gm/ 50 mls @ 100 mls/hr 06/03/23 09:00 06/03/23 10:13 Sodium Chloride IVPB 06/06/23 09:29 100 mls/hr Q24HR VESTA Administration Protocol Sodium Bicarbonate 150 ml/ 1,150 mls @ 75 mls/hr 06/03/23 11:15 Dextrose/Water IV .[id number] VESTA Metoprolol Tartrate 12.5 mg 06/03/23 13:00 06/03/23 13:40 Metoprolol Tartrate 12.5 Mg Tab PO 12.5 mg BID VESTA Administration Miscellaneous Information 1 each 06/02/23 14:33 Pneumonia Protocol Utilized 1 Each Misc PO ONCE PRN Per Protocol Ondansetron HCl 4 mg 06/03/23 00:58 Ondansetron 4 Mg/2 Ml Vial IVP Q6HR PRN Nausea And Vomiting Intake and Output 06/02/23 06/03/23 06/03/23 22:59 06:59 14:59 Intake Total 82.156 300 Output Total 3800 4150 1900 Balance -3717.844 4150 -1600 Intake: IV 300 Dextrose 5% in Water 1, 300 000 ml @ 75 mls/hr IV . [id number] VESTA with Sodium Bicarb (1 Meq/ml) 150 ml Rx#:[id number] Intake, IV Titration 82.156 Amount Heparin Sod,Pork in 0.45% 82.156 NaCl 25,000 unit In 0.45 % NaCl 1 250ml.bag @ 18 UNITS/KG/HR 14.288 mls/hr IV .[id number] VESTA Rx#: [id number] Output: Urine 3800 4150 1900 Other: Voiding Method Indwelling Catheter Indwelling Catheter Weight 79.379 kg Patient Weight 06/04/23 06:59 Weight 79.379 kg 06/03/23 07:32 06/03/23 07:32
--- NOTE | 2023-06-03 14:08 | P.CNPUL ---
History of Present Illness Consult date: 06/03/23 Requesting physician: Gentry Rich Reason for consult: dyspnea, pleural effusion, abnormal CXR/CT, other Chief complaint: Lower extremity edema, increasing abdominal girth, shortness of breath History of present illness: Pulmonary consult dated 06/03/2023. 82-year-old male who we see today in the intensive care unit, room 252. All of the history is obtained from the patient's . She states that about 2 weeks ago, they went on vacation, and when they got home, the patient was very fatigued, had no energy, wasn't eating, developed lower extremity edema, increasing abdominal girth, and was found to be short of breath. The patient apparently does not see a doctor has not seen a doctor in years. He is a lifelong nonsmoker. He takes no medications at home on a regular basis. The patient apparently had a recent episode of coronavirus infection, May 24. His appetite has been very poor. His chest x-ray shows a pattern consistent with either pneumonia and/or CHF. His N-terminal proBNP was elevated. Also, his pro-calcitonin level was elevated. Chest x-ray was interpreted by radiology suggested a right lower lobe infiltrate, but in my opinion, the pattern on chest x-ray, and also be consistent with asymmetric pulmonary edema. White count of 17.5, hemoglobin 12.4, hematocrit 36.1, and platelet count was normal. Sodium 135, potassium 3.5, chlorides 103, CO2 16, anion gap 16, BUN 124, and creatinine 7.04. Yesterday, his BUN was 160 with a creatinine of 13.56. Pro-calcitonin level is 0.51. N-terminal proBNP was 4180. Coronavirus testing here at this hospital was negative. Review of Systems REVIEW OF SYSTEMS: CONSTITUTIONAL: Weakness, fatigue, lack of energy. NEUROLOGIC: [ Negative.] HEENT: [ Negative.] CARDIAC: Lower extremity edema. PULMONARY: Shortness of breath. GI: Poor appetite, increasing abdominal girth. : [Negative.] RHEUMATOLOGIC: [ Negative.] IMMUNOLOGIC: [ Negative.] ENDOCRINE: [Negative. ] DERMATOLOGIC: [Negative.] Past Medical History Past Medical History: No Reported History Additional Past Medical History / Comment(s): new afib. this admission (06/03/23) History of Any Multi-Drug Resistant Organisms: None Reported Past Surgical History: Appendectomy Additional Past Surgical History / Comment(s): claudia. catearact surg. Past Anesthesia/Blood Transfusion Reactions: No Reported Reaction Additional Past Anesthesia/Blood Transfusion Reaction / Comment(s): never received transfusion Past Psychological History: No Psychological Hx Reported Smoking Status: Never smoker Past Alcohol Use History: Occasional Past Drug Use History: None Reported - Past Family History Father Family Medical History: CVA/TIA Mother Family Medical History: Myocardial Infarction ([place]) Medications and Allergies Home Medications Medication Instructions Recorded Confirmed Type Azithromycin [Zithromax Z Pack] See Taper PO DIRECTED 06/02/23 06/02/23 History Famotidine [Pepcid] 20 mg PO BID 06/02/23 06/02/23 History Allergies Allergy/AdvReac Type Severity Reaction Status Date / Time No Known Allergies Allergy Verified 06/02/23 14:44 Physical Exam Osteopathic Statement: *. No significant issues noted on an osteopathic structural exam other than those noted in the History and Physical/Consult. Vitals: Vital Signs Temp Pulse Pulse Resp BP BP Pulse Ox 06/03/23 12:12 98.2 F 69 22 133/73 97 06/03/23 08:00 98.1 F 80 22 148/76 95 06/03/23 07:00 97.2 F L 54 L 22 159/80 95 06/03/23 06:00 46 L 17 134/66 96 06/03/23 05:16 54 L 17 131/70 96 06/03/23 04:41 76 131/40 06/03/23 03:38 140/60 06/03/23 02:07 72 19 139/72 97 06/03/23 00:52 75 19 145/88 97 06/02/23 23:28 69 19 133/74 06/02/23 21:00 70 20 145/57 98 06/02/23 20:00 61 20 108/75 97 06/02/23 19:00 57 L 20 148/80 95 06/02/23 18:20 80 18 161/88 96 06/02/23 16:30 97.3 F L 77 22 158/95 97 06/02/23 14:57 75 20 173/90 97 06/02/23 14:32 84 19 Intake and Output 06/02/23 06/03/23 06/03/23 22:59 06:59 14:59 Intake Total 82.156 300 Output Total 3800 4150 1900 Balance -3717.844 -4150 -1600 Intake: IV 300 Dextrose 5% in Water 1, 300 000 ml @ 75 mls/hr IV . [id number] VESTA with Sodium Bicarb (1 Meq/ml) 150 ml Rx#:[id number] Intake, IV Titration 82.156 Amount Heparin Sod,Pork in 0.45% 82.156 NaCl 25,000 unit In 0.45 % NaCl 1 250ml.bag @ 18 UNITS/KG/HR 14.288 mls/hr IV .[id number] VESTA Rx#: [id number] Output: Urine 3800 4150 1900 Other: Voiding Method Indwelling Catheter Indwelling Catheter Weight 79.379 kg No acute distress, oriented 3, somnolent. On room air, with saturations of 97%. HEENT examination is grossly unremarkable. Neck supple. Full range of motion. No adenopathy thyromegaly or neck vein distention. Cardiovascular examination reveals regular rhythm rate. S1-S2 normal. No S3 or S4. No discernible murmur noted. Heart rate 69 bpm. Heart sounds are distant. Lungs reveal scattered rhonchi, and a few crackles. No wheezes. Room air sa turation 97%. Abdomen soft bowel sounds are heard. No masses or tenderness. Extremities are intact. No cyanosis or clubbing. Mild lower extremity edema noted. Skin is without rash or lesion. Neurologic examination is brief but nonfocal. Results - Laboratory Findings CBC and BMP: 06/03/23 07:32 06/03/23 07:32 PT/INR, D-dimer PT 11.8 sec (9.0-12.0) 06/02/23 14:09 INR 1.1 (<1.2) 06/02/23 14:09 D-Dimer 10.69 mg/L FEU (<0.60) H 06/02/23 14:09 Abnormal lab findings: Abnormal Labs 06/02/23 06/02/23 06/02/23 11:38 11:38 14:09 WBC 19.9 H RBC 4.28 L Hgb Hct Neutrophils # 18.7 H Lymphocytes # 0.4 L APTT D-Dimer 10.69 H Sodium 121 L Chloride 87 L Carbon Dioxide 6 L* BUN 181 H* Creatinine 16.79 H* Glucose 120 H POC Glucose (mg/dL) Calcium Phosphorus Magnesium 2.8 H Alkaline Phosphatase 136 H Albumin Procalcitonin 06/02/23 06/02/23 06/03/23 21:35 21:35 03:15 WBC 19.9 H RBC 3.77 L Hgb 12.5 L Hct 36.1 L Neutrophils # 18.1 H Lymphocytes # 0.5 L APTT 79.2 H D-Dimer Sodium 127 L Chloride 94 L Carbon Dioxide 13 L BUN 160 H* Creatinine 13.56 H* Glucose 105 H POC Glucose (mg/dL) Calcium 8.3 L Phosphorus Magnesium Alkaline Phosphatase Albumin 2.9 L Procalcitonin 06/03/23 06/03/23 06/03/23 03:15 06:46 07:32 WBC 17.5 H RBC 3.75 L Hgb 12.4 L Hct 36.1 L Neutrophils # 16.1 H Lymphocytes # 0.4 L APTT D-Dimer Sodium Chloride Carbon Dioxide BUN Creatinine Glucose POC Glucose (mg/dL) 120 H Calcium Phosphorus Magnesium Alkaline Phosphatase Albumin Procalcitonin 0.51 H 06/03/23 06/03/23 07:32 07:32 WBC RBC Hgb Hct Neutrophils # Lymphocytes # APTT 33.9 H D-Dimer Sodium 135 L Chloride Carbon Dioxide 16 L BUN 124 H* Creatinine 7.04 H* Glucose 105 H POC Glucose (mg/dL) Calcium 8.1 L Phosphorus 5.6 H Magnesium Alkaline Phosphatase Albumin Procalcitonin - Diagnostic Findings Chest x-ray: image reviewed Assessment and Plan Assessment: Shortness of breath, increasing abdominal girth, and lower extremity edema, with a compatible chest x-ray, and an elevated BNP, that point towards congestive heart failure. Shortness of breath, and a elevated pro-calcitonin level, possibly related to underlying pneumonia. Poor appetite, fatigue, weight loss, all secondary to above issues. Plan: Plan dated 06/03/2023. The patient is currently on azithromycin and Rocephin. I think that's appropriate at this point. In addition, the patient's getting an echocardiogram. Cardiology should definitely see this patient, for their input. Additional recommendations and suggestions are forthcoming. Currently, the patient is not receiving any IV fluids. He is currently on room air. He does seem a bit out of it. Labs, x-rays, and medications are reviewed. We will continue to follow make recommendations along the way. Prognosis is guarded. Time with Patient: Greater than 30
[2023-06-03] MEDS: DEXTROSE 5% IN WATER 1,000 ML with SODIUM BICARB (1 MEQ/ML) 150 ML IV SCH (14:34)
--- NOTE | 2023-06-03 16:57 | CA ---
Transthoracic Echo Report Name: Edvin Quinn Age: 82 Gender: M : 1940 Exam Date: 06/03/2023 13:20 Exam Location: [facility] Echo Ht (in): 68 Wt (lb): 175 Ordering Physician: Hiro Noel MD ([id number]) Attending/Referring Phys: Skin Care Specialist Ludmila Blackburn RDCS Procedure CPT: Indications: a.fib Cardiac Hx: Technical Quality: Good Contrast 1: Total Dose (mL): Contrast 2: Total Dose (mL): MEASUREMENTS (Male / Female) Normal Values 2D ECHO LV Diastolic Diameter PLAX 5.1 cm 4.2 - 5.9 / 3.9 - 5.3 cm LV Systolic Diameter PLAX 3.1 cm IVS Diastolic Thickness 1.3 cm 0.6 - 1.0 / 0.6 - 0.9 cm LVPW Diastolic Thickness 1.2 cm 0.6 - 1.0 / 0.6 - 0.9 cm LV Relative Wall Thickness 0.5 RV Internal Dim ED PLAX 3.3 cm LA Systolic Diameter LX 4.6 cm 3.0 - 4.0 / 2.7 - 3.8 cm LV Diastolic Volume MOD BP 140.6 cm??? 67 - 155 / 56 - 104 cm??? LV Systolic Volume MOD BP 63.6 cm??? 22 - 58 / 19 - 49 cm??? LV Ejection Fraction MOD BP 54.8 % >= 55 % LV Cardiac Index MOD BP 2428.2 cm???/min???m??? LV Diastolic Volume MOD 4C 142.0 cm??? LV Systolic Volume MOD 4C 74.1 cm??? LV Ejection Fraction MOD 4C 47.8 % LV Cardiac Index MOD 4C 2141.1 cm???/min???m??? LV Diastolic Length 4C 8.0 cm LV Systolic Length 4C 7.0 cm LV Diastolic Volume MOD 2C 140.1 cm??? LV Systolic Volume MOD 2C 53.5 cm??? LV Ejection Fraction MOD 2C 61.9 % LV Cardiac Index MOD 2C 2733.6 cm???/min???m??? LV Diastolic Length 2C 7.9 cm LV Systolic Length 2C 6.7 cm LA Volume 90.0 cm??? 18 - 58 / 22 - 52 cm??? M-MODE Aortic Root Diameter MM 3.6 cm MV E Point Septal Separation 1.2 cm AV Cusp Separation MM 2.3 cm DOPPLER AV Peak Velocity 205.7 cm/s AV Peak Gradient 16.9 mmHg AV Mean Velocity 125.3 cm/s AV Mean Gradient 7.4 mmHg AV Velocity Time Integral 36.2 cm AI Peak Velocity 295.3 cm/s AI Peak Gradient 34.9 mmHg AI Pressure Half Time 900.2 ms LVOT Peak Velocity 146.8 cm/s LVOT Peak Gradient 8.6 mmHg MV Area PHT 3.2 cm??? MV Deceleration Time 249.8 ms TR Peak Velocity 332.0 cm/s TR Peak Gradient 44.1 mmHg Right Ventricular Systolic Press 48.3 mmHg FINDINGS Left Ventricle Left ventricular ejection fraction is estimated at 40-45 %. Left ventricular cavity size normal. Mildly increased septal wall thickness. Mildly increased left ventricular systolic volume. Mildly decreased left ventricular ejection fraction. Right Ventricle Mild right ventricular dilatation. Moderate pulmonary hypertension. Right Atrium Normal right atrial size. Left Atrium Mildly increased left atrial diameter. Severely increased left atrial volume. Mildly increased left atrial area. Mitral Valve Mitral valve thickened. Mild mitral regurgitation. Mitral annular calcification. Aortic Valve Trileaflet aortic valve. Mild aortic regurgitation. Mild aortic stenosis with a peak gradient of 17 mmHg and a mean gradient of 7 mmHg. Tricuspid Valve Structurally normal tricuspid valve. Mild tricuspid regurgitation. Pulmonic Valve Structurally normal pulmonic valve. Trace pulmonic regurgitation. Pericardium No pericardial effusion. Pleural effusion. Aorta Normal size aortic root and proximal ascending aorta. CONCLUSIONS Mild LV systolic dysfunction with an ejection fraction of 45% Mild mitral regurgitation Mild aortic stenosis and regurgitation Moderate pulmonary hypertension Previewed by: Dr. Devin Lester MD (Electronically Signed) Final Date: 03 June 2023 16:57
[2023-06-03 20:32] LABS: HCT 33.6 % (39.0-53.0); HGB 11.3 gm/dL (13.0-17.5); MCH 32.7 pg (25.0-35.0); MCHC 33.5 g/dL (31.0-37.0); MCV 97.5 fL (80.0-100.0); Mean Platelet Volume 8.2; Platelet Count 342 k/uL (150-450); RBC 3.45 m/uL (4.30-5.90); RDW 13.3 % (11.5-15.5); WBC 18.4 k/uL (3.8-10.6)
[2023-06-03 20:41] LABS: African American GFR (CKD) 23 (>60 ml/min/1.73 sqM); Anion Gap 8 mmol/L; Blood Urea Nitrogen 78 mg/dL (9-20); Calcium 8.1 mg/dL (8.4-10.2); Carbon Dioxide 24 mmol/L (22-30); Chloride 106 mmol/L (98-107); Glucose 165 mg/dL (74-99); Non-African American GFR(CKD) 20 (>60 ml/min/1.73 sqM); Potassium 3.3 mmol/L (3.5-5.1); Sodium 138 mmol/L (137-145)
[2023-06-03] MEDS ORDERED: Potassium Replacement Protocol 1 EACH MISC MISCELLANE PRN (21:01)
[2023-06-03] MEDS: POTASSIUM CHLORIDE ER 20 MEQ TAB.ER PO SCH ×2 (21:23→22:26)
[2023-06-04 04:10] LABS: HCT 30.8 % (39.0-53.0); HGB 10.8 gm/dL (13.0-17.5); MCV 97.1 fL (80.0-100.0); Platelet Count 322 k/uL (150-450); RBC 3.17 m/uL (4.30-5.90); RDW 13.2 % (11.5-15.5); WBC 18.8 k/uL (3.8-10.6)
[2023-06-04 04:21] LABS: African American GFR (CKD) 50 (>60 ml/min/1.73 sqM); Anion Gap 6 mmol/L; Blood Urea Nitrogen 57 mg/dL (9-20); Carbon Dioxide 28 mmol/L (22-30); Chloride 105 mmol/L (98-107); Glucose 141 mg/dL (74-99); Non-African American GFR(CKD) 44 (>60 ml/min/1.73 sqM); Potassium 3.4 mmol/L (3.5-5.1); Sodium 139 mmol/L (137-145)
[2023-06-04] MEDS ORDERED: Potassium Replacement Protocol 1 EACH MISC MISCELLANE PRN (04:41)
[2023-06-04] MEDS: POTASSIUM CHLORIDE ER 20 MEQ TAB.ER PO SCH ×2 (05:08→06:05)
[2023-06-04] MEDS: DEXTROSE 5% IN WATER 1,000 ML with SODIUM BICARB (1 MEQ/ML) 150 ML IV SCH (06:05)
--- NOTE | 2023-06-04 08:05 | P.PN ---
Subjective Progress Note Date: 06/04/23 Principal diagnosis: Atrial fibrillation The patient is an 82-year-old gentleman was no significant past medical history presented to the hospital after he was brought with his because he was not feeling well. He was diagnosed was COVID-19 infection few weeks ago and since then he did not feel well. [place] his noticed that he has been more short of breath with exertion and lately developed bilateral lower extremity edema and also he was feeling tired and fatigued and has no energy. No symptoms of any chest pain or chest discomfort or dizziness or lightheadedness or any feeling of heart racing or fluttering and no presyncope or syncope. He gained significant amount of weight. He also developed some abdominal girth. Because of that the decided to bring the patient to the hospital for further evaluation. He underwent a blood work in the emergency department and that came in to be abnormal with evidence of acute renal failure. The patient is not aware of any prior history of chronic kidney disease and never seen any coin machine mechanic before. Also the EKG revealed atrial fibrillation which is known to have as well. The patient is asymptomatic from that standpoint of view. Further investigation was a chest x-ray and that showed evidence of volume overload. NT proBNP came in to be around 5000. Troponin was not performed. No coronary artery disease and no congestive heart failure and no cardiac arrhythmia and the patient ever seen by any digital program manager before. We consulted to see the patient because of the atrial fibrillation. Subsequently the patient wasn't started on IV heparin but he developed severe hematuria and currently that is under investigation by the urology service. Heparin is on hold at this point. June [id number] The patient was seen and evaluated this morning. He is feeling better in terms of shortness of breath. No pain in the chest. He is in atrial fibrillation with controlled heart rate on the current dose of beta geronimo. He has been diuresing well. He continues to have hematuria. He was seen yesterday by the urology service. I we will continue holding on any anticoagulation at this point we have the okay from the urology service to start him on either IV anticoagulation or oral anticoagulation. Meanwhile continue the current dose of beta geronimo. He underwent an echo which revealed mildly impaired LV function with EF around 45% was moderate pulmonary hypertension. The troponin came in to be mildly elevated and could be related to renal dysfunction. His creatinine has been improving significantly. The examination is remarkable for regular rhythm with a systolic murmur at the right and left upper sternal border and mild bilateral lower extremity edema and diminished breathing sounds bilaterally. Assessment Acute renal failure currently under investigation which has been improved Heart failure exacerbation of unknown etiology at this point Evidence of volume overload Atrial fibrillation of unknown etiology at this point. The heart rate appeared to be controlled Hematuria Recently diagnosed as of COVID-19 infection Plan Continue the current dose of beta geronimo Consider medical treatment for the mildly abnormal troponin Consider starting the patient on IV or oral anticoagulation Further recommendation to follow Objective - Vital Signs Vital signs: Vital Signs Temp 98.1 F 06/04/23 04:00 Pulse 69 06/04/23 04:00 Resp 19 06/04/23 04:00 BP 140/67 06/04/23 04:00 Pulse Ox 96 06/04/23 04:00 FiO2 Intake & Output 06/03/23 06/04/23 06/04/23 18:59 06:59 18:59 Intake Total 875 600 Output Total 3170 600 Balance -2295 0 Weight 79.379 kg 73.3 kg Intake: IV 875 600 Dextrose 5% in Water 1, 825 600 000 ml @ 75 mls/hr IV . [id number] VESTA with Sodium Bicarb (1 Meq/ml) 150 ml Rx#:[id number] cefTRIAXone 2 gm In 50 Sodium Chloride 0.9% 50 ml @ 100 mls/hr IVPB Q24HR EVSTA Rx#:[id number] Output: Urine 3170 600 Other: Voiding Method Indwelling Catheter Indwelling Catheter # Bowel Movements 2 - Labs CBC & Chem 7: 06/04/23 03:39 06/04/23 03:34 Labs: Abnormal Lab Results - Last 24 Hours (Table) 06/03/23 06/03/23 06/03/23 Range/Units 03:15 07:32 07:32 WBC (3.8-10.6) k/uL RBC (4.30-5.90) m/uL Hgb (13.0-17.5) gm/dL Hct (39.0-53.0) % APTT 33.9 H (22.0-30.0) sec Sodium 135 L (137-145) mmol/L Potassium (3.5-5.1) mmol/L Carbon Dioxide 16 L (22-30) mmol/L BUN 124 H* (9-20) mg/dL Creatinine 7.04 H* (0.66-1.25) mg/dL Glucose 105 H (74-99) mg/dL Calcium 8.1 L (8.4-10.2) mg/dL Phosphorus 5.6 H (2.5-4.5) mg/dL Troponin I (0.000-0.034) ng/mL Procalcitonin 0.51 H (0.02-0.09) ng/mL 06/03/23 06/03/23 06/03/23 Range/Units 14:03 19:31 19:31 WBC 18.4 H (3.8-10.6) k/uL RBC 3.45 L (4.30-5.90) m/uL Hgb 11.3 L (13.0-17.5) gm/dL Hct 33.6 L (39.0-53.0) % APTT (22.0-30.0) sec Sodium (137-145) mmol/L Potassium (3.5-5.1) mmol/L Carbon Dioxide (22-30) mmol/L BUN (9-20) mg/dL Creatinine (0.66-1.25) mg/dL Glucose (74-99) mg/dL Calcium (8.4-10.2) mg/dL Phosphorus (2.5-4.5) mg/dL Troponin I 0.051 H* 0.051 H* (0.000-0.034) ng/mL Procalcitonin (0.02-0.09) ng/mL 06/03/23 06/04/23 06/04/23 Range/Units 19:31 03:34 03:39 WBC 18.8 H (3.8-10.6) k/uL RBC 3.17 L (4.30-5.90) m/uL Hgb 10.8 L (13.0-17.5) gm/dL Hct 30.8 L (39.0-53.0) % APTT (22.0-30.0) sec Sodium (137-145) mmol/L Potassium 3.3 L 3.4 L (3.5-5.1) mmol/L Carbon Dioxide (22-30) mmol/L BUN 78 H 57 H (9-20) mg/dL Creatinine 2.84 H 1.49 H (0.66-1.25) mg/dL Glucose 165 H 141 H (74-99) mg/dL Calcium 8.1 L 8.0 L (8.4-10.2) mg/dL Phosphorus (2.5-4.5) mg/dL Troponin I (0.000-0.034) ng/mL Procalcitonin (0.02-0.09) ng/mL Microbiology - Last 24 Hours (Table) 06/02/23 14:45 Blood Culture - Preliminary Blood 06/02/23 14:30 Blood Culture - Preliminary Blood
--- NOTE | 2023-06-04 08:06 | XR ---
EXAMINATION TYPE: XR chest 1V portable DATE OF EXAM: 06/04/2023 COMPARISON: 06/03/2023 HISTORY: Cough TECHNIQUE: Single frontal view of the chest is obtained. FINDINGS: Diffuse interstitial pattern of the right lower lobe consolidation. Subsegmental changes l eft lung base. Tiny right effusion. Heart is enlarged. Atherosclerotic change aorta. Underlying COPD. No pneumothorax. Diffuse osteopenia noted throughout the shoulders. Degenerative changes. IMPRESSION: 1. Stable lower lobe infiltrate and interstitial pattern correlation for interstitial pneumonitis or venous congestion. 2. COPD
--- NOTE | 2023-06-04 10:01 | P.PN ---
Subjective Progress Note Date: 06/03/23 Patient is a 82-year-old male without significant past medical history and recent COVID-19 infection since 05/24/2023 presents to ER with complaints of generalized weakness, loss of appetite, increased leg swelling and weight gain and shortness of breath. Patient denies any complaints of fever or chills. No nausea vomiting abdominal pain or diarrhea. Denies any dizziness or lightheadedness. Patient is not on follow-up with primary care physician for several years. Since COVID-19 infection recently patient has been having shortness of breath and worsening leg swelling and increased abdominal girth. Denies any palpitations. No dizziness or lightheadedness. No palpitations. Patient is also having decreased urine output. No prior history of chronic kidney disease. Chest x-ray showed right lower lobe infiltrate correlate for pneumonia. Laboratory data showed WBC 19.9 hemoglobin 14.0 and platelets 419 neutrophils 18.7 Sodium 121 potassium 4.7 chloride 87 bicarb is 6 BUN 181 and creatinine 16.7 and blood sugar is 120 Magnesium 2.8 and alk phos 136 and proBNP 4180 and troponin 0.030 and albumin 3.5. D-dimer is 10.69 EKG showed atrial fibrillation with aberrant conduction or ventricular premature complexes. 06/03/2023 Patient is seen and evaluated in follow-up today and was undergoing VQ scan to evaluate for possible PE as patient had significantly elevated d-dimer.. Patient was on heparin drip and having noted hematuria with urology on consult. Cardiology consulted as well for atrial fibrillation. Recommend holding heparin and monitor closely. Hemoglobin is stable at 12.4 and nephrology also following his kidney functions were severely elevated. Patient's creatinine today is improved at 7.04 and again urology on consult and pending. Patient is afebrile with no reports of chest pain or shortness of breath. Patient reports weakness but has reported this over the last few weeks since Covid earlier this month.. Review of systems: Constitutional: No reports of fatigue, fever, or chills Cardiovascular: No reports of chest pain or palpitations Respiratory: No reports of shortness of breath or cough GI: No reports of nausea, vomiting, or diarrhea : No reports of dysuria or retention Neurovascular: reports of generalized weakness All medications have been reviewed Physical exam: Gen: This is a 82-year-old male who is awake, alert and oriented 3, well-de veloped, thin built HEENT: Head is atraumatic, normocephalic. Pupils equal, round. Sclerae is anicte goldy. NECK: Supple. No JVD. No lymphadenopathy. No thyromegaly. LUNGS: Clear to auscultation. No wheezes or rhonchi. No intercostal retractions. HEART: Regular rate and rhythm. No murmur. ABDOMEN: Soft. Thin. Bowel sounds are present. No masses. No tenderness. EXTREMITIES: No pedal edema. No calf tenderness. NEUROLOGICAL: Patient is awake, alert and oriented x3. Cranial nerves 2 through 12 are grossly intact. Assessment: Acute kidney injury. Possibly ATN. Trending down Anion gap metabolic acidosis Hematuria Hyponatremia likely hypovolemic hypoosmolar New onset atrial fibrillation with RVR Elevated BNP level 4180, possible heart failure exacerbation, unknown EF he Recent COVID-19 infection since 05/24/2023 Generalized weakness, weight gain and leg swelling and shortness of breath Right lower lobe pneumonia DVT prophylaxis patient is already on heparin drip GI prophylaxis Full code Plan: Patient will be continued on bicarb drip and gentle IV hydration. Nephrology following and labs are significantly improving creatinine down to 7 today Patient with noted significant hematuria indwelling Shaikh catheter and urology has been consulted. Patient also on IV heparin and is being placed on hold Cardiology following for new onset atrial fibrillation with RVR and continue tel emetry monitoring. Medication adjustments being made. Heparin being held per cardiology as well due to hematuria hemoglobin is stable and would recommend monitoring closely and transfuse of interest. Patient to continue with antibiotics in the form of azithromycin and ceftriaxone and procalcitonin is 0.51 Repeat Covid testing and urine Legionella is negative. Ultrasound renal ordered and pending. Due to multiple complex medical issues, prognosis is guarded. The impression and plan of care has been dictated by Paradise Mcgowan, Nurse Practitioner as directed. Dr. Layla MD I have performed a history and examination and MDM of this patient, discussed the same with the dictator, and agree with the dictator's assessment and plan as written ,documented as a scribe. Based on total visit time, I have performed more than 50% of the visit. Objective - Vital Signs Vital signs: Vital Signs Temp 97.2 F L 06/03/23 07:00 Pulse 54 L 06/03/23 07:00 Resp 22 06/03/23 07:00 BP 159/80 06/03/23 07:00 Pulse Ox 95 06/03/23 07:00 FiO2 Intake & Output 06/02/23 06/03/23 06/03/23 18:59 06:59 18:59 Intake Total 82.156 Output Total 3800 4150 Balance -3800 -4067.844 Weight 79.379 kg Intake: Intake, IV Titration 82.156 Amount Heparin Sod,Pork in 0.45% 82.156 NaCl 25,000 unit In 0.45 % NaCl 1 250ml.bag @ 18 UNITS/KG/HR 14.288 mls/hr IV .[id number] VESTA Rx#: [id number] Output: Urine 3800 4150 Other: Voiding Method Indwelling Catheter - Labs CBC & Chem 7: 06/04/23 03:39 06/04/23 03:34 Labs: Abnormal Lab Results - Last 24 Hours (Table) 06/02/23 06/02/23 06/02/23 Range/Units 11:38 11:38 14:09 WBC 19.9 H (3.8-10.6) k/uL RBC 4.28 L (4.30-5.90) m/uL Hgb (13.0-17.5) gm/dL Hct (39.0-53.0) % Neutrophils # 18.7 H (1.3-7.7) k/uL Lymphocytes # 0.4 L (1.0-4.8) k/uL APTT (22.0-30.0) sec D-Dimer 10.69 H (<0.60) mg/L FEU Sodium 121 L (137-145) mmol/L Chloride 87 L (98-107) mmol/L Carbon Dioxide 6 L* (22-30) mmol/L BUN 181 H* (9-20) mg/dL Creatinine 16.79 H* (0.66-1.25) mg/dL Glucose 120 H (74-99) mg/dL POC Glucose (mg/dL) (70-110) mg/dL Calcium (8.4-10.2) mg/dL Magnesium 2.8 H (1.6-2.3) mg/dL Alkaline Phosphatase 136 H (38-126) U/L Albumin (3.5-5.0) g/dL Procalcitonin (0.02-0.09) ng/mL 06/02/23 06/02/23 06/03/23 Range/Units 21:35 21:35 03:15 WBC 19.9 H (3.8-10.6) k/uL RBC 3.77 L (4.30-5.90) m/uL Hgb 12.5 L (13.0-17.5) gm/dL Hct 36.1 L (39.0-53.0) % Neutrophils # 18.1 H (1.3-7.7) k/uL Lymphocytes # 0.5 L (1.0-4.8) k/uL APTT 79.2 H (22.0-30.0) sec D-Dimer (<0.60) mg/L FEU Sodium 127 L (137-145) mmol/L Chloride 94 L (98-107) mmol/L Carbon Dioxide 13 L (22-30) mmol/L BUN 160 H* (9-20) mg/dL Creatinine 13.56 H* (0.66-1.25) mg/dL Glucose 105 H (74-99) mg/dL POC Glucose (mg/dL) (70-110) mg/dL Calcium 8.3 L (8.4-10.2) mg/dL Magnesium (1.6-2.3) mg/dL Alkaline Phosphatase (38-126) U/L Albumin 2.9 L (3.5-5.0) g/dL Procalcitonin (0.02-0.09) ng/mL 06/03/23 06/03/23 06/03/23 Range/Units 03:15 06:46 07:32 WBC 17.5 H (3.8-10.6) k/uL RBC 3.75 L (4.30-5.90) m/uL Hgb 12.4 L (13.0-17.5) gm/dL Hct 36.1 L (39.0-53.0) % Neutrophils # 16.1 H (1.3-7.7) k/uL Lymphocytes # 0.4 L (1.0-4.8) k/uL APTT (22.0-30.0) sec D-Dimer (<0.60) mg/L FEU Sodium (137-145) mmol/L Chloride (98-107) mmol/L Carbon Dioxide (22-30) mmol/L BUN (9-20) mg/dL Creatinine (0.66-1.25) mg/dL Glucose (74-99) mg/dL POC Glucose (mg/dL) 120 H (70-110) mg/dL Calcium (8.4-10.2) mg/dL Magnesium (1.6-2.3) mg/dL Alkaline Phosphatase (38-126) U/L Albumin (3.5-5.0) g/dL Procalcitonin 0.51 H (0.02-0.09) ng/mL 06/03/23 06/03/23 Range/Units 07:32 07:32 WBC (3.8-10.6) k/uL RBC (4.30-5.90) m/uL Hgb (13.0-17.5) gm/dL Hct (39.0-53.0) % Neutrophils # (1.3-7.7) k/uL Lymphocytes # (1.0-4.8) k/uL APTT 33.9 H (22.0-30.0) sec D-Dimer (<0.60) mg/L FEU Sodium 135 L (137-145) mmol/L Chloride (98-107) mmol/L Carbon Dioxide 16 L (22-30) mmol/L BUN 124 H* (9-20) mg/dL Creatinine 7.04 H* (0.66-1.25) mg/dL Glucose 105 H (74-99) mg/dL POC Glucose (mg/dL) (70-110) mg/dL Calcium 8.1 L (8.4-10.2) mg/dL Magnesium (1.6-2.3) mg/dL Alkaline Phosphatase (38-126) U/L Albumin (3.5-5.0) g/dL Procalcitonin (0.02-0.09) ng/mL
--- NOTE | 2023-06-04 10:16 | P.PN ---
Subjective Progress Note Date: 06/04/23 Principal diagnosis: CHF. Pulmonary consult dated 06/03/2023. 82-year-old male who we see today in the intensive care unit, room 252. All of the history is obtained from the patient's . She states that about 2 weeks ago, they went on vacation, and when they got home, the patient was very fatigued, had no energy, wasn't eating, developed lower extremity edema, increasing abdominal girth, and was found to be short of breath. The patient apparently does not see a doctor has not seen a doctor in years. He is a lifelong nonsmoker. He takes no medications at home on a regular basis. The patient apparently had a recent episode of coronavirus infection, May 24. His appetite has been very poor. His chest x-ray shows a pattern consistent with either pneumonia and/or CHF. His N-terminal proBNP was elevated. Also, his pro-calcitonin level was elevated. Chest x-ray was interpreted by radiology suggested a right lower lobe infiltrate, but in my opinion, the pattern on chest x-ray, and also be consistent with asymmetric pulmonary edema. White count of 17.5, hemoglobin 12.4, hematocrit 36.1, and platelet count was normal. Sodium 135, potassium 3.5, chlorides 103, CO2 16, anion gap 16, BUN 124, and creatinine 7.04. Yesterday, his BUN was 160 with a creatinine of 13.56. Pro-calcitonin level is 0.51. N-terminal proBNP was 4180. Coronavirus testing here at this hospital was negative. Progress note dated 06/04/2023. 82-year-old male seen yesterday in consultation. He seen again today in room 252. Currently he is on room air. His chest x-ray looking much better. We thought his problem was primarily CHF/fluid overload. He is getting an IV with 3 ampules of sodium bicarbonate and D5W at 75 mL an hour. White count is 18.8, hemoglobin 10.8, hematocrit 30.8, and platelet count is normal. Sodium 139, potassium 3.4, chlorides 105, CO2 28, BUN 57, creatinine 1.49. Echocardiogram shows an ejection fraction of 40-45%. Pro-calcitonin level was 0.51. The patient remains on Rocephin. Objective - Vital Signs Vital signs: Vital Signs Temp 97.7 F 06/04/23 08:00 Pulse 45 L 06/04/23 08:00 Resp 14 06/04/23 08:00 BP 143/74 06/04/23 08:00 Pulse Ox 96 06/04/23 08:00 FiO2 Intake & Output 06/03/23 06/04/23 06/04/23 18:59 06:59 18:59 Intake Total 875 600 450 Output Total 3170 600 1150 Balance -2295 0 -700 Weight 79.379 kg 73.3 kg Intake: IV 875 600 450 Dextrose 5% in Water 1, 825 600 450 000 ml @ 75 mls/hr IV . [id number] VESTA with Sodium Bicarb (1 Meq/ml) 150 ml Rx#:[id number] cefTRIAXone 2 gm In 50 Sodium Chloride 0.9% 50 ml @ 100 mls/hr IVPB Q24HR VESTA Rx#:[id number] Output: Urine 3170 600 1150 Other: Voiding Method Indwelling Catheter Indwelling Catheter # Bowel Movements 2 - Exam No acute distress, oriented 3, much more awake and alert today. On room air, with saturations of 96 %. HEENT examination is grossly unremarkable. Neck supple. Full range of motion. No adenopathy thyromegaly or neck vein distention. Cardiovascular examination reveals regular rhythm rate. S1-S2 normal. No S3 or S4. No discernible murmur noted. Heart rate 52 bpm. Heart sounds are distant. Lungs reveal scattered rhonchi, and a few crackles. No wheezes. Room air saturation 96 %. Abdomen is mildly distended. Bowel sounds are noted. No tenderness. Extremities are intact. No cyanosis or clubbing. Mild lower extremity edema noted. Skin is without rash or lesion. Neurologic examination is brief but nonfocal. - Labs CBC & Chem 7: 06/04/23 03:39 06/04/23 03:34 Labs: Abnormal Lab Results - Last 24 Hours (Table) 06/03/23 06/03/23 06/03/23 Range/Units 07:32 14:03 19:31 WBC (3.8-10.6) k/uL RBC (4.30-5.90) m/uL Hgb (13.0-17.5) gm/dL Hct (39.0-53.0) % Potassium (3.5-5.1) mmol/L BUN (9-20) mg/dL Creatinine (0.66-1.25) mg/dL Glucose (74-99) mg/dL Calcium (8.4-10.2) mg/dL Phosphorus 5.6 H (2.5-4.5) mg/dL Troponin I 0.051 H* 0.051 H* (0.000-0.034) ng/mL 06/03/23 06/03/23 06/04/23 Range/Units 19:31 19:31 03:34 WBC 18.4 H (3.8-10.6) k/uL RBC 3.45 L (4.30-5.90) m/uL Hgb 11.3 L (13.0-17.5) gm/dL Hct 33.6 L (39.0-53.0) % Potassium 3.3 L 3.4 L (3.5-5.1) mmol/L BUN 78 H 57 H (9-20) mg/dL Creatinine 2.84 H 1.49 H (0.66-1.25) mg/dL Glucose 165 H 141 H (74-99) mg/dL Calcium 8.1 L 8.0 L (8.4-10.2) mg/dL Phosphorus (2.5-4.5) mg/dL Troponin I (0.000-0.034) ng/mL 06/04/23 Range/Units 03:39 WBC 18.8 H (3.8-10.6) k/uL RBC 3.17 L (4.30-5.90) m/uL Hgb 10.8 L (13.0-17.5) gm/dL Hct 30.8 L (39.0-53.0) % Potassium (3.5-5.1) mmol/L BUN (9-20) mg/dL Creatinine (0.66-1.25) mg/dL Glucose (74-99) mg/dL Calcium (8.4-10.2) mg/dL Phosphorus (2.5-4.5) mg/dL Troponin I (0.000-0.034) ng/mL Microbiology - Last 24 Hours (Table) 06/02/23 14:45 Blood Culture - Preliminary Blood 06/02/23 14:30 Blood Culture - Preliminary Blood Assessment and Plan Assessment: Shortness of breath, increasing abdominal girth, and lower extremity edema, with a compatible chest x-ray, and an elevated BNP, that point towards congestive heart failure. Acute kidney injury, improved. Shortness of breath, and a elevated pro-calcitonin level, possibly related to underlying pneumonia. Poor appetite, fatigue, weight loss, all secondary to above issues. Plan: Plan dated 06/03/2023. The patient is currently on azithromycin and Rocephin. I think that's appropriate at this point. In addition, the patient's getting an echocardiogram. Cardiology should definitely see this patient, for their input. Additional recommendations and suggestions are forthcoming. Currently, the patient is not receiving any IV fluids. He is currently on room air. He does seem a bit out of it. Labs, x-rays, and medications are reviewed. We will continue to follow make recommendations along the way. Prognosis is guarded. Plan dated 06/04/2023. The patient is much more awake and alert today. The patient is currently getting a sodium bicarbonate drip at 75 mL an hour. Chest x-rays much improved. Kidney function is much improved. Labs, x-rays, and medications are reviewed. We will continue to follow and make recommendations along the way. Prognosis is guarded. Time with Patient: Greater than 30
[2023-06-04] MEDS: SODIUM CHLORIDE 0.9% 1,000 ML IV SCH (10:30)
[2023-06-04] MEDS: METOPROLOL TARTRATE 12.5 MG TAB PO SCH ×2 (10:33→21:15)
[2023-06-04] MEDS: AZITHROMYCIN 500 MG TAB PO SCH (10:33)
--- NOTE | 2023-06-04 12:01 | P.PN ---
Subjective Patient is seen for follow-up for acute kidney injury. This was mostly obstructive uropathy with significant improvement in renal function with Shaikh catheter placement. Patient has hematuria from bladder decompression versus bladder mass No plans for acute intervention from urology standpoint. No complaints today Serum creatinine is down to 1.4 mg/dL from 16.7 on initial admission. Objective - Vital Signs Vital signs: Vital Signs Temp 97.7 F 06/04/23 08:00 Pulse 45 L 06/04/23 08:00 Resp 14 06/04/23 08:00 BP 143/74 06/04/23 08:00 Pulse Ox 96 06/04/23 08:00 FiO2 Intake & Output 06/03/23 06/04/23 06/04/23 18:59 06:59 18:59 Intake Total 875 600 450 Output Total 3170 600 1150 Balance -2295 0 -700 Weight 79.379 kg 73.3 kg Intake: IV 875 600 450 Dextrose 5% in Water 1, 825 600 450 000 ml @ 75 mls/hr IV . [id number] VESTA with Sodium Bicarb (1 Meq/ml) 150 ml Rx#:[id number] cefTRIAXone 2 gm In 50 Sodium Chloride 0.9% 50 ml @ 100 mls/hr IVPB Q24HR VESTA Rx#:[id number] Output: Urine 3170 600 1150 Other: Voiding Method Indwelling Catheter Indwelling Catheter # Bowel Movements 2 1 - Exam Patient is awake, comfortable, no acute distress Examination of the heart S1 and S2 Examination of the lungs bilateral breath sounds are heard Abdomen is soft nontender Examination of the lower extremity shows no significant edema [employer] exam grossly intact Bloody urine noted in the Shaikh bag - Labs CBC & Chem 7: 06/04/23 03:39 06/04/23 10:16 Labs: Abnormal Lab Results - Last 24 Hours (Table) 06/03/23 06/03/23 06/03/23 Range/Units 07:32 14:03 19:31 WBC (3.8-10.6) k/uL RBC (4.30-5.90) m/uL Hgb (13.0-17.5) gm/dL Hct (39.0-53.0) % Potassium (3.5-5.1) mmol/L BUN (9-20) mg/dL Creatinine (0.66-1.25) mg/dL Glucose (74-99) mg/dL Calcium (8.4-10.2) mg/dL Phosphorus 5.6 H (2.5-4.5) mg/dL Troponin I 0.051 H* 0.051 H* (0.000-0.034) ng/mL 06/03/23 06/03/23 06/04/23 Range/Units 19:31 19:31 03:34 WBC 18.4 H (3.8-10.6) k/uL RBC 3.45 L (4.30-5.90) m/uL Hgb 11.3 L (13.0-17.5) gm/dL Hct 33.6 L (39.0-53.0) % Potassium 3.3 L 3.4 L (3.5-5.1) mmol/L BUN 78 H 57 H (9-20) mg/dL Creatinine 2.84 H 1.49 H (0.66-1.25) mg/dL Glucose 165 H 141 H (74-99) mg/dL Calcium 8.1 L 8.0 L (8.4-10.2) mg/dL Phosphorus (2.5-4.5) mg/dL Troponin I (0.000-0.034) ng/mL 06/04/23 Range/Units 03:39 WBC 18.8 H (3.8-10.6) k/uL RBC 3.17 L (4.30-5.90) m/uL Hgb 10.8 L (13.0-17.5) gm/dL Hct 30.8 L (39.0-53.0) % Potassium (3.5-5.1) mmol/L BUN (9-20) mg/dL Creatinine (0.66-1.25) mg/dL Glucose (74-99) mg/dL Calcium (8.4-10.2) mg/dL Phosphorus (2.5-4.5) mg/dL Troponin I (0.000-0.034) ng/mL Microbiology - Last 24 Hours (Table) 06/02/23 14:45 Blood Culture - Preliminary Blood 06/02/23 14:30 Blood Culture - Preliminary Blood Assessment and Plan Assessment: 1. Acute kidney injury secondary to obstructive uropathy with bilateral hydronephrosis on ultrasound and about 4 L of urine obtained on initial Shaikh catheter placement. Continue with Shaikh catheter and IV fluids 2. Anion gap metabolic acidosis secondary to advanced renal failure and obstructive uropathy, currently improving 3. Hypovolemic hyponatremia currently improved with IV fluids 4. Hematuria secondary to bladder decompression and relief of chronic obstruction and distention. 5. History of recent covid infection on 05/24/2023 Plan: DC bicarb drip Switch to normal saline Monitor electrolytes Repeat labs in a.m. Continue with Shaikh catheter
--- NOTE | 2023-06-04 18:03 | P.PN ---
Subjective Progress Note Date: 06/04/23 The patient is in the hospital with weakness, retention and acute renal failure He is feeling better The urine is clearing Objective - Vital Signs Vital signs: Vital Signs Temp 98.3 F 06/04/23 16:00 Pulse 52 L 06/04/23 16:00 Resp 10 L 06/04/23 16:00 BP 153/77 06/04/23 16:00 Pulse Ox 96 06/04/23 16:00 FiO2 Intake & Output 06/03/23 06/04/23 06/04/23 18:59 06:59 18:59 Intake Total 875 600 825 Output Total 3170 600 1715 Balance -2295 0 -890 Weight 79.379 kg 73.3 kg Intake: IV 875 600 450 Dextrose 5% in Water 1, 825 600 450 000 ml @ 75 mls/hr IV . [id number] VESTA with Sodium Bicarb (1 Meq/ml) 150 ml Rx#:[id number] cefTRIAXone 2 gm In 50 Sodium Chloride 0.9% 50 ml @ 100 mls/hr IVPB Q24HR VESTA Rx#:[id number] Intake, IV Titration 375 Amount Sodium Chloride 0.9% 1, 375 000 ml @ 75 mls/hr IV . [id number] VESTA Rx#:[id number] Output: Urine 3170 600 1715 Other: Voiding Method Indwelling Catheter Indwelling Catheter Indwelling Catheter # Bowel Movements 2 4 - Genitourinary Genitourinary Comment(s): nodular prostate worrisome for ca prostate. - Labs CBC & Chem 7: 06/04/23 03:39 06/04/23 10:16 Labs: Abnormal Lab Results - Last 24 Hours (Table) 06/03/23 06/03/23 06/03/23 Range/Units 19:31 19:31 19:31 WBC 18.4 H (3.8-10.6) k/uL RBC 3.45 L (4.30-5.90) m/uL Hgb 11.3 L (13.0-17.5) gm/dL Hct 33.6 L (39.0-53.0) % Potassium 3.3 L (3.5-5.1) mmol/L BUN 78 H (9-20) mg/dL Creatinine 2.84 H (0.66-1.25) mg/dL Glucose 165 H (74-99) mg/dL Calcium 8.1 L (8.4-10.2) mg/dL Troponin I 0.051 H* (0.000-0.034) ng/mL Free T3 pg/mL (2.8-5.3) pg/ml 06/04/23 06/04/23 06/04/23 Range/Units 03:34 03:39 10:16 WBC 18.8 H (3.8-10.6) k/uL RBC 3.17 L (4.30-5.90) m/uL Hgb 10.8 L (13.0-17.5) gm/dL Hct 30.8 L (39.0-53.0) % Potassium 3.4 L (3.5-5.1) mmol/L BUN 57 H (9-20) mg/dL Creatinine 1.49 H (0.66-1.25) mg/dL Glucose 141 H (74-99) mg/dL Calcium 8.0 L (8.4-10.2) mg/dL Troponin I (0.000-0.034) ng/mL Free T3 pg/mL 2.4 L (2.8-5.3) pg/ml Microbiology - Last 24 Hours (Table) 06/02/23 14:45 Blood Culture - Preliminary Blood 06/02/23 14:30 Blood Culture - Preliminary Blood Assessment and Plan Assessment: Impression: Urine retention, arf, hematuria. Recommendations: The arf is resolving. the cr was 1.4 today. the hematuria secondary to the bladder over distention and catheter trauma is also resolving.. The patient is feeling better. The prostate exam shows a nodular prostate worrisome for prostate cancer. I will obtain a psa. the patient will need a cysto as well as an us with probable biopsy as an outpatient upon recouperation
[2023-06-04] MEDS: APIXABAN 2.5 MG TABLET PO SCH (21:15)
[2023-06-05] MEDS: SODIUM CHLORIDE 0.9% 1,000 ML IV SCH ×3 (00:37→13:23)
[2023-06-05 04:34] LABS: Basophils % (A) 0 %; Eosinophils # (A) 0.4 k/uL (0-0.7); Eosinophils % (A) 2 %; HCT 33.4 % (39.0-53.0); HGB 11.2 gm/dL (13.0-17.5); Lymphocytes # (A) 0.9 k/uL (1.0-4.8); Lymphocytes % (A) 5 %; MCH 33.6 pg (25.0-35.0); MCHC 33.5 g/dL (31.0-37.0); MCV 100.5 fL (80.0-100.0); Mean Platelet Volume 8.5; Monocytes # (A) 0.8 k/uL (0-1.0); Monocytes % (A) 4 %; Neutrophils # (A) 16.9 k/uL (1.3-7.7); Neutrophils % (A) 88 %; Platelet Count 318 k/uL (150-450); RBC 3.32 m/uL (4.30-5.90); RDW 13.3 % (11.5-15.5); WBC 19.2 k/uL (3.8-10.6)
[2023-06-05 04:43] LABS: African American GFR (CKD) >90 (>60 ml/min/1.73 sqM); Anion Gap 7 mmol/L; Blood Urea Nitrogen 27 mg/dL (9-20); Calcium 8.1 mg/dL (8.4-10.2); Carbon Dioxide 27 mmol/L (22-30); Chloride 106 mmol/L (98-107); Glucose 118 mg/dL (74-99); Magnesium 1.9 mg/dL (1.6-2.3); Non-African American GFR(CKD) 85 (>60 ml/min/1.73 sqM); Potassium 3.7 mmol/L (3.5-5.1); Sodium 140 mmol/L (137-145)
[2023-06-05] MEDS ORDERED: POTASSIUM CHLORIDE ER 20 MEQ TAB.ER PO SCH (05:00)
--- NOTE | 2023-06-05 05:43 | P.PN ---
Subjective Progress Note Date: 06/04/23 Patient is a 82-year-old male without significant past medical history and recent COVID-19 infection since 05/24/2023 presents to ER with complaints of generalized weakness, loss of appetite, increased leg swelling and weight gain and shortness of breath. Patient denies any complaints of fever or chills. No nausea vomiting abdominal pain or diarrhea. Denies any dizziness or lightheadedness. Patient is not on follow-up with primary care physician for several years. Since COVID-19 infection recently patient has been having shortness of breath and worsening leg swelling and increased abdominal girth. Denies any palpitations. No dizziness or lightheadedness. No palpitations. Patient is also having decreased urine output. No prior history of chronic kidney disease. Chest x-ray showed right lower lobe infiltrate correlate for pneumonia. Laboratory data showed WBC 19.9 hemoglobin 14.0 and platelets 419 neutrophils 18.7 Sodium 121 potassium 4.7 chloride 87 bicarb is 6 BUN 181 and creatinine 16.7 and blood sugar is 120 Magnesium 2.8 and alk phos 136 and proBNP 4180 and troponin 0.030 and albumin 3.5. D-dimer is 10.69 EKG showed atrial fibrillation with aberrant conduction or ventricular premature complexes. 06/03/2023 Patient is seen and evaluated in follow-up today and was undergoing VQ scan to evaluate for possible PE as patient had significantly elevated d-dimer.. Patient was on heparin drip and having noted hematuria with urology on consult. Cardiology consulted as well for atrial fibrillation. Recommend holding heparin and monitor closely. Hemoglobin is stable at 12.4 and nephrology also following his kidney functions were severely elevated. Patient's creatinine today is improved at 7.04 and again urology on consult and pending. Patient is afebrile with no reports of chest pain or shortness of breath. Patient reports weakness but has reported this over the last few weeks since Covid earlier this month.. 06/04/2023 Patient is seen in the ICU this morning with multiple medical consultations following. Patient continues with hematuria although hemoglobin is stable. White count remains elevated. Patient is maintained on antibiotics. Urology evaluated the patient recommend to continue with indwelling Shaikh catheter and patient will need outpatient cystoscope biopsy. PSA was ordered. There is a concern for mass and will need follow-up outpatient. Patient is afebrile denies any chest pain or shortness of breath. Patient continues with significant weakness and fatigue and decreased appetite. Encouraged increased activity in oral intake. We'll have PT evaluate the patient. Review of systems: Constitutional: reports of fatigue, no fever, or chills Cardiovascular: No reports of chest pain or palpitations Respiratory: No reports of shortness of breath or cough GI: No reports of nausea, vomiting, or diarrhea : No reports of dysuria or retention Neurovascular: reports of generalized weakness All medications have been reviewed Physical exam: Gen: This is a 82-year-old male who is asleep although arousable , alert and oriented 3, well-developed, thin built HEENT: Head is atraumatic, normocephalic. Pupils equal, round. Sclerae is anicteric. NECK: Supple. No JVD. No lymphadenopathy. No thyromegaly. LUNGS: Clear to auscultation. No wheezes or rhonchi. No intercostal retractions. HEART: Regular rate and rhythm. No murmur. ABDOMEN: Soft. Thin. Bowel sounds are present. No masses. No tenderness. EXTREMITIES: No pedal edema. No calf tenderness. NEUROLOGICAL: Patient is awake, alert and oriented x3. Cranial nerves 2 through 12 are grossly intact. Assessment: Acute kidney injury. Possibly ATN. Trending down Anion gap metabolic acidosis Hematuria likely due to indwelling Shaikh catheter trauma with insertion Hyponatremia likely hypovolemic hypoosmolar New onset atrial fibrillation with RVR Elevated BNP level 4180, possible heart failure exacerbation, unknown EF Recent COVID-19 infection since 05/24/2023 Generalized weakness, weight gain and leg swelling and shortness of breath Right lower lobe pneumonia DVT prophylaxis patient is already on heparin drip and being transitioned to eliquis GI prophylaxis Full code Plan: Patient will be continued on bicarb drip and gentle IV hydration. Nephrology following and labs are significantly improving creatinine down to 1.4 today Patient with noted significant hematuria indwelling Shaikh catheter and urology following and was likely related to indwelling Shaikh catheter insertion trauma. Patient will require cystoscopy scope with biopsy in the outpatient setting. Urology once recovered from this hospitalization. Patient continue with indwelling Shaikh catheter. Hemoglobin is stable. Cardiology following for new onset atrial fibrillation with RVR and continue telemetry monitoring. Medication adjustments being made. Currently rate controlled hemoglobin is stable and would recommend monitoring closely and transfuse if 7 or less Patient to continue with antibiotics in the form of azithromycin and ceftriaxone and procalcitonin is 0.51 Repeat Covid testing and urine Legionella is negative. Patient with weakness will have PT/OT therapy evaluate the patient. Due to multiple complex medical issues, prognosis is guarded. The impression and plan of care has been dictated by Paradise Mcgowan, Nurse Practitioner as directed. Dr. Layla MD I have performed a history and examination and MDM of this patient, discussed the same with the dictator, and agree with the dictator's assessment and plan as written ,documented as a scribe. Based on total visit time, I have performed more than 50% of the visit. Objective - Vital Signs Vital signs: Vital Signs Temp 97.9 F 06/04/23 12:00 Pulse 62 06/04/23 12:00 Resp 15 06/04/23 12:00 BP 139/96 06/04/23 12:00 Pulse Ox 91 L 06/04/23 12:00 FiO2 Intake & Output 06/03/23 06/04/23 06/04/23 18:59 06:59 18:59 Intake Total 875 600 825 Output Total 3170 600 1715 Balance -2295 0 -890 Weight 79.379 kg 73.3 kg Intake: IV 875 600 450 Dextrose 5% in Water 1, 825 600 450 000 ml @ 75 mls/hr IV . [id number] VESTA with Sodium Bicarb (1 Meq/ml) 150 ml Rx#:[id number] cefTRIAXone 2 gm In 50 Sodium Chloride 0.9% 50 ml @ 100 mls/hr IVPB Q24HR VESTA Rx#:[id number] Intake, IV Titration 375 Amount Sodium Chloride 0.9% 1, 375 000 ml @ 75 mls/hr IV . [id number] VESTA Rx#:[id number] Output: Urine 3170 600 1715 Other: Voiding Method Indwelling Catheter Indwelling Catheter # Bowel Movements 2 1 - Labs CBC & Chem 7: 06/05/23 03:48 06/05/23 03:48 Labs: Abnormal Lab Results - Last 24 Hours (Table) 06/03/23 06/03/23 06/03/23 Range/Units 14:03 19:31 19:31 WBC 18.4 H (3.8-10.6) k/uL RBC 3.45 L (4.30-5.90) m/uL Hgb 11.3 L (13.0-17.5) gm/dL Hct 33.6 L (39.0-53.0) % Potassium (3.5-5.1) mmol/L BUN (9-20) mg/dL Creatinine (0.66-1.25) mg/dL Glucose (74-99) mg/dL Calcium (8.4-10.2) mg/dL Troponin I 0.051 H* 0.051 H* (0.000-0.034) ng/mL 06/03/23 06/04/23 06/04/23 Range/Units 19:31 03:34 03:39 WBC 18.8 H (3.8-10.6) k/uL RBC 3.17 L (4.30-5.90) m/uL Hgb 10.8 L (13.0-17.5) gm/dL Hct 30.8 L (39.0-53.0) % Potassium 3.3 L 3.4 L (3.5-5.1) mmol/L BUN 78 H 57 H (9-20) mg/dL Creatinine 2.84 H 1.49 H (0.66-1.25) mg/dL Glucose 165 H 141 H (74-99) mg/dL Calcium 8.1 L 8.0 L (8.4-10.2) mg/dL Troponin I (0.000-0.034) ng/mL Microbiology - Last 24 Hours (Table) 06/02/23 14:45 Blood Culture - Preliminary Blood 06/02/23 14:30 Blood Culture - Preliminary Blood
--- NOTE | 2023-06-05 08:03 | P.PN ---
Subjective Progress Note Date: 06/05/23 Principal diagnosis: Atrial fibrillation The patient is an 82-year-old gentleman was no significant past medical history presented to the hospital after he was brought with his because he was not feeling well. He was diagnosed was COVID-19 infection few weeks ago and since then he did not feel well. [place] his noticed that he has been more short of breath with exertion and lately developed bilateral lower extremity edema and also he was feeling tired and fatigued and has no energy. No symptoms of any chest pain or chest discomfort or dizziness or lightheadedness or any feeling of heart racing or fluttering and no presyncope or syncope. He gained significant amount of weight. He also developed some abdominal girth. Because of that the decided to bring the patient to the hospital for further evaluation. He underwent a blood work in the emergency department and that came in to be abnormal with evidence of acute renal failure. 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 Also the EKG revealed atrial fibrillation which is known to have as well. The patient is asymptomatic from that standpoint of view. Further investigation was a chest x-ray and that showed evidence of volume overload. NT proBNP came in to be around 5000. Troponin was not performed. No coronary artery disease and no congestive heart failure and no cardiac arrhythmia and the patient ever seen by any surgical aides teacher before. We consulted to see the patient because of the atrial fibrillation. Subsequently the patient wasn't started on IV heparin but he developed severe hematuria and currently that is under investigation by the urology service. Heparin is on hold at this point. June 042022 The patient was seen and evaluated this morning. He is feeling better in terms of shortness of breath. No pain in the chest. He is in atrial fibrillation with controlled heart rate on the current dose of beta geronimo. He has been diuresing well. He continues to have hematuria. He was seen yesterday by the urology service. I we will continue holding on any anticoagulation at this point we have the okay from the urology service to start him on either IV anticoagulation or oral anticoagulation. Meanwhile continue the current dose of beta geronimo. He underwent an echo which revealed mildly impaired LV function with EF around 45% was moderate pulmonary hypertension. The troponin came in to be mildly elevated and could be related to renal dysfunction. His creatinine has been improving significantly. June 052022 The patient was seen and evaluated this morning. He is asymptomatic and hemodynamically stable. He remains in atrial fibrillation with controlled heart rate on the current medical regimen. He was started on oral anticoagulation yesterday. The echo revealed mildly impaired LV function with EF around 45%. He continues to diurese a lot. The kidney function is back to normal. From the cardiovascular standpoint of view, the patient can be transferred out of the intensive care unit with potential discharge home if he doesn't need any urologic procedure in the next 24-48 hours. The examination is remarkable for irregular rhythm with a systolic murmur at the right and left upper sternal border and mild bilateral lower extremity edema and diminished breathing sounds bilaterally. Assessment Acute renal failure currently under investigation which has been improved Atrial fibrillation of unknown etiology at this point. The heart rate appeared to be controlled Hematuria Recently diagnosed as of COVID-19 infection Plan Continue the current dose of beta geronimo Consider medical treatment for the mildly abnormal troponin Continue oral anticoagulation The patient can be transferred out of the intensive care unit Objective - Vital Signs Vital signs: Vital Signs Temp 98.3 F 06/05/23 04:00 Pulse 65 06/05/23 04:00 Resp 22 06/05/23 04:00 BP 121/63 06/05/23 04:00 Pulse Ox 96 06/04/23 16:00 FiO2 Intake & Output 06/04/23 06/05/23 06/05/23 18:59 06:59 18:59 Intake Total 825 200 Output Total 1940 500 Balance -1115 -300 Weight 73.2 kg Intake: IV 450 Dextrose 5% in Water 1, 450 000 ml @ 75 mls/hr IV . [id number] VESTA with Sodium Bicarb (1 Meq/ml) 150 ml Rx#:[id number] Intake, IV Titration 375 Amount Sodium Chloride 0.9% 1, 375 000 ml @ 75 mls/hr IV . [id number] VESTA Rx#:[id number] Oral 200 Output: Urine 1940 500 Other: Voiding Method Indwelling Catheter Indwelling Catheter # Bowel Movements 4 - Labs CBC & Chem 7: 06/05/23 03:48 06/05/23 03:48 Labs: Abnormal Lab Results - Last 24 Hours (Table) 06/04/23 06/05/23 06/05/23 Range/Units 10:16 03:48 03:48 WBC 19.2 H (3.8-10.6) k/uL RBC 3.32 L (4.30-5.90) m/uL Hgb 11.2 L (13.0-17.5) gm/dL Hct 33.4 L (39.0-53.0) % MCV 100.5 H (80.0-100.0) fL Neutrophils # 16.9 H (1.3-7.7) k/uL Lymphocytes # 0.9 L (1.0-4.8) k/uL BUN 27 H (9-20) mg/dL Glucose 118 H (74-99) mg/dL Calcium 8.1 L (8.4-10.2) mg/dL Free T3 pg/mL 2.4 L (2.8-5.3) pg/ml Microbiology - Last 24 Hours (Table) 06/02/23 14:45 Blood Culture - Preliminary Blood 06/02/23 14:30 Blood Culture - Preliminary Blood
[2023-06-05] MEDS: APIXABAN 2.5 MG TABLET PO SCH (08:54)
[2023-06-05] MEDS: METOPROLOL TARTRATE 12.5 MG TAB PO SCH (08:55)
--- NOTE | 2023-06-05 09:47 | P.PN ---
Subjective Progress Note Date: 06/05/23 Principal diagnosis: CHF. Pulmonary consult dated 06/03/2023. 82-year-old male who we see today in the intensive care unit, room 252. All of the history is obtained from the patient's . She states that about 2 weeks ago, they went on vacation, and when they got home, the patient was very fatigued, had no energy, wasn't eating, developed lower extremity edema, increasing abdominal girth, and was found to be short of breath. The patient apparently does not see a doctor has not seen a doctor in years. He is a lifelong nonsmoker. He takes no medications at home on a regular basis. The patient apparently had a recent episode of coronavirus infection, May 24. His appetite has been very poor. His chest x-ray shows a pattern consistent with either pneumonia and/or CHF. His N-terminal proBNP was elevated. Also, his pro-calcitonin level was elevated. Chest x-ray was interpreted by radiology suggested a right lower lobe infiltrate, but in my opinion, the pattern on chest x-ray, and also be consistent with asymmetric pulmonary edema. White count of 17.5, hemoglobin 12.4, hematocrit 36.1, and platelet count was normal. Sodium 135, potassium 3.5, chlorides 103, CO2 16, anion gap 16, BUN 124, and creatinine 7.04. Yesterday, his BUN was 160 with a creatinine of 13.56. Pro-calcitonin level is 0.51. N-terminal proBNP was 4180. Coronavirus testing here at this hospital was negative. Progress note dated 06/04/2023. 82-year-old male seen yesterday in consultation. He seen again today in room 252. Currently he is on room air. His chest x-ray looking much better. We thought his problem was primarily CHF/fluid overload. He is getting an IV with 3 ampules of sodium bicarbonate and D5W at 75 mL an hour. White count is 18.8, hemoglobin 10.8, hematocrit 30.8, and platelet count is normal. Sodium 139, potassium 3.4, chlorides 105, CO2 28, BUN 57, creatinine 1.49. Echocardiogram shows an ejection fraction of 40-45%. Pro-calcitonin level was 0.51. The patient remains on Rocephin. Progress note dated 08/05/2023. 82-year-old male seen again today in the intensive care unit, room 252. Currently, the patient's on room air. He's not receiving any IV fluids. Shaikh catheter still in place. The patient apparently is going to have an outpatient cystoscopy, and could possibly be discharged out of the ICU, or even home later today. Clinically, he seems to be doing okay. Not a particularly good historian. Does seem a little weak and fatigued. White count 19.2, hemoglobin 11.2, hematocrit 33.4, with a normal platelet count. Sodium 140, potassium 3.7, chlorides 106, CO2 27, BUN is down to 27, creatinine 0.79. Blood cultures are thus far negative. Chest x-ray from yesterday shows a stable lower lobe infiltrate. Objective - Vital Signs Vital signs: Vital Signs Temp 98.3 F 06/05/23 04:00 Pulse 65 06/05/23 04:00 Resp 22 06/05/23 04:00 BP 121/63 06/05/23 04:00 Pulse Ox 96 06/04/23 16:00 FiO2 Intake & Output 06/04/23 06/05/23 06/05/23 18:59 06:59 18:59 Intake Total 825 200 Output Total 1940 500 Balance -1115 -300 Weight 73.2 kg Intake: IV 450 Dextrose 5% in Water 1, 450 000 ml @ 75 mls/hr IV . [id number] VESTA with Sodium Bicarb (1 Meq/ml) 150 ml Rx#:[id number] Intake, IV Titration 375 Amount Sodium Chloride 0.9% 1, 375 000 ml @ 75 mls/hr IV . [id number] VESTA Rx#:[id number] Oral 200 Output: Urine 1940 500 Other: Voiding Method Indwelling Catheter Indwelling Catheter # Bowel Movements 4 - Exam No acute distress, oriented 3, much more awake and alert today. On room air, with saturations of 97 %. HEENT examination is grossly unremarkable. Neck supple. Full range of motion. No adenopathy thyromegaly or neck vein distention. Cardiovascular examination reveals regular rhythm rate. S1-S2 normal. No S3 or S4. No discernible murmur noted. Heart rate 65 bpm. Heart sounds are distant. Lungs reveal scattered rhonchi, and a few crackles. No wheezes. Room air saturation 97 %. Abdomen is mildly distended. Bowel sounds are noted. No tenderness. Extremities are intact. No cyanosis or clubbing. Mild lower extremity edema noted. Skin is without rash or lesion. Neurologic examination is brief but nonfocal. - Labs CBC & Chem 7: 06/05/23 03:48 06/05/23 03:48 Labs: Abnormal Lab Results - Last 24 Hours (Table) 06/04/23 06/05/23 06/05/23 Range/Units 10:16 03:48 03:48 WBC 19.2 H (3.8-10.6) k/uL RBC 3.32 L (4.30-5.90) m/uL Hgb 11.2 L (13.0-17.5) gm/dL Hct 33.4 L (39.0-53.0) % MCV 100.5 H (80.0-100.0) fL Neutrophils # 16.9 H (1.3-7.7) k/uL Lymphocytes # 0.9 L (1.0-4.8) k/uL BUN 27 H (9-20) mg/dL Glucose 118 H (74-99) mg/dL Calcium 8.1 L (8.4-10.2) mg/dL Free T3 pg/mL 2.4 L (2.8-5.3) pg/ml Microbiology - Last 24 Hours (Table) 06/02/23 14:45 Blood Culture - Preliminary Blood 06/02/23 14:30 Blood Culture - Preliminary Blood Assessment and Plan Assessment: Shortness of breath, increasing abdominal girth, and lower extremity edema, with a compatible chest x-ray, and an elevated BNP, that point towards congestive heart failure. Acute kidney injury, improved. Shortness of breath, and a elevated pro-calcitonin level, possibly related to underlying pneumonia. Poor appetite, fatigue, weight loss, all secondary to above issues. Plan: Plan dated 06/03/2023. The patient is currently on azithromycin and Rocephin. I think that's ap propriate at this point. In addition, the patient's getting an echocardiogram. Cardiology should definitely see this patient, for their input. Additional recommendations and suggestions are forthcoming. Currently, the patient is not receiving any IV fluids. He is currently on room air. He does seem a bit out of it. Labs, x-rays, and medications are reviewed. We will continue to follow make recommendations along the way. Prognosis is guarded. Plan dated 06/04/2023. The patient is much more awake and alert today. The patient is currently getting a sodium bicarbonate drip at 75 mL an hour. Chest x-rays much improved. Kidney function is much improved. Labs, x-rays, and medications are reviewed. We will continue to follow and make recommendations along the way. Prognosis is guarded. Plan dated 06/05/2023. The patient appears to be doing much better. His breathing is much improved. He does seem a bit fatigued though. Cultures are thus far negative. Labs, x- rays, and medications are all reviewed. The Rocephin can be discontinued. The patient will be scheduled for an outpatient cystoscopy. The patient will be given Omnicef 300 mg twice a day. Additional recommendations and suggestions are forthcoming. Time with Patient: Less than 30
[2023-06-05 12:27] VITALS: RESP 20
--- NOTE | 2023-06-05 12:59 | CDI ---
Documentation Clarification Form Date: 06/05/2023 11:47:18 AM From: Linda Selby RN, CCDS Admit Date: 06/02/2023 02:35:00 PM Patient Name: Edvin Quinn Visit Number: [id number] Discharge Date: ATTENTION: The Clinical Documentation Specialists (CDI) and [facility] Coding Staff appreciate your assistance in clarifying documentation. Please respond to the clarification below the line at the bottom and electronically sign. The CDI & [facility] Coding staff will review the response and follow-up if needed. Please note: Queries are made part of the Legal Health Record. If you have any questions, please contact the author of this message via ITS. Dr. Hiro Noel The patient has the documented diagnosis of unspecified CHF exacerbation, evidence of volume overload in your consult on 06/03/2023. Additional information regarding the type, acuity of CHF is requested. History/Risk Factors: Covid 05/24/23 Clinical Indicators: 82-year-old male developed bilateral lower extremity edema, feeling tired and fatigued. He gained significant amount of weight. 06/03 CXR: Dense stable rt lower lobe infiltrate and small effusion. 06/04 CXR stable lower lobe infiltrate and interstitial pattern correlation for interstitial pneumonitis or venous congestion 06/02 VS: 190 44 90 20 98 95% RA 06/02 BNP: 4180 Troponin 0.030 Echocardiogram Results: mildly impaired LV function with EF around 45% with moderate pulmonary hypertension Treatment: ICU/Telemetry monitoring Lopressor 12.5 MG PO BID Echocardiogram, Serial cardiac enzymes, electrolytes Monitor I&O In your professional opinion, can you please clarify the acuity and type of CHF if known? [ x ] Acute Systolic Heart Failure (reduced EF) [ ] Chronic Systolic Heart Failure (reduced EF) [ ] Acute on Chronic Systolic Heart Failure (reduced EF) [ ] Acute Diastolic Heart Failure (preserved EF) [ ] Chronic Diastolic Heart Failure (preserved EF [ ] Acute Systolic & Diastolic Heart Failure [ ] Chronic Systolic & Diastolic Heart Failure [ ] Congestive heart failure ruled out [ ] Other, please specify [ ] Unable to determine (Template Last Revised: November 2020) MTDD
--- NOTE | 2023-06-05 13:30 | CDI ---
Documentation Clarification Form Date: 06/05/2023 01:03:28 PM From: Linda Selby RN, CCDS Admit Date: 06/02/2023 02:35:00 PM Patient Name: Edvin Quinn Visit Number: [id number] Discharge Date: ATTENTION: The Clinical Documentation Specialists (CDI) and [facility] Coding Staff appreciate your assistance in clarifying documentation. Please respond to the clarification below the line at the bottom and electronically sign. The CDI & [facility] Coding staff will review the response and follow-up if needed. Please note: Queries are made part of the Legal Health Record. If you have any questions, please contact the author of this message via ITS. Dr. Hiro Noel Atrial Fibrillation is documented in the Cardiology consult and progress notes starting on 06/03/2023. Additional clarification regarding the type of atrial fibrillation is requested. History/Risk Factors: 05/24/23 Clinical Indicators: 82-year-old male present with complaints of shortness of breath, activity intolerance and lower extremity swelling. Echocardiogram Results: mildly impaired LV function with EF around 45% with moderate pulmonary hypertension. 06/02 VS: 190 44 90 20 98 95% RA 06/02 EKG/telemetry: Atrial Fibrillation with aberrant conduction or ventricular premature complexes 72 bpm Treatment: ICU/Telemetry monitoring Lopressor 12.5 MG PO BID 06/03-06/05 Heparin Drip 06/02-06/03 (hold) Eliquis 2.5 MG PO BID 06/04-06/05 Please clarify the type of atrial fibrillation, if known: [ ] Chronic [ ] Permanent [ ] Paroxysmal [ x ] Persistent [ ] Other, please specify [ ] Unable to determine (Template Last Revised: February 2021) MTDD
[2023-06-05 16:53] VITALS: PULSE 64; TEMP 97.7
[2023-06-05 17:07] VITALS: BP 144/77
[2023-06-05] MEDS ORDERED: CEFDINIR 300 MG CAP PO SCH (21:00)
--- NOTE | 2023-06-07 09:14 | P.PN ---
Subjective Patient is seen for follow-up for acute kidney injury. This was mostly obstructive uropathy with significant improvement in renal function with Shaikh catheter placement. Patient has hematuria from bladder decompression versus bladder mass No plans for acute intervention from urology standpoint. No complaints today Serum creatinine is down to 0.79 mg/dL from 16.7 on initial admission. 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 Acute kidney injury secondary to obstructive uropathy with bilateral hydronephrosis on ultrasound and about 4 L of urine obtained on initial Shaikh catheter placement. Continue with Shaikh catheter and IV fluids 2. Anion gap metabolic acidosis secondary to advanced renal failure and obstructive uropathy, currently improving 3. Hypovolemic hyponatremia currently improved with IV fluids 4. Hematuria secondary to bladder decompression and relief of chronic obstruction and distention. 5. History of recent covid infection on 05/24/2023 Plan: OK to discharge patient F/u as out patient with urology Continue with Shaikh catheter
--- NOTE | 2023-06-13 19:01 | P.DS ---
Providers Date of admission: 06/02/23 14:35 Expected date of discharge: 06/05/23 Attending physician: Gentry Rich Consults: 06/02/23 14:33 Consult Physician Routine Consulting Provider: [facility] Consult Reason/Comments: New-onset A. fib Do you want consulting provider notified?: Yes 06/02/23 14:36 Consult Physician Routine Consulting Provider: Anisha Tian Consult Reason/Comments: Acute renal failure Do you want consulting provider notified?: Yes 06/03/23 10:38 Consult Physician Routine Consulting Provider: Shmuel Agrawal Consult Reason/Comments: recent covid, pna, chf, cl Do you want consulting provider notified?: Yes 06/03/23 11:07 Consult Physician Routine Consulting Provider: Bry Keating Consult Reason/Comments: claudia. hydronephrosis Do you want consulting provider notified?: Yes Primary care physician: Stated None Hospital Course: Final diagnosis Acute kidney injury. Likely ATN. Trending down Anion gap metabolic acidosis Hematuria secondary to indwelling Shaikh catheter trauma with insertion Hyponatremia likely hypovolemic hypoosmolar New onset atrial fibrillation with RVR, currently rate controlled Elevated BNP level 4180, possible heart failure exacerbation, unknown EF Recent COVID-19 infection since 05/24/2023 Generalized weakness, weight gain and leg swelling and shortness of breath Right lower lobe pneumonia DVT prophylaxis on eliquis GI prophylaxis Full code Discharge disposition Patient is being discharged in a stable condition with guarded prognosis to home. Patient will follow-up with primary care provider to establish in the outpatient setting upon discharge. Patient is to follow-up with urology outpatient as well as cardiology as scheduled. Patient is to continue with indwelling Shaikh catheter on discharge. Total time taken is greater than 35 minutes. Hospital course This is a 83-year-old male who was recently admitted with significant weakness acute kidney injury with a creatinine above 12. Patient had recent Covid infection and had been becoming more generally weak and not feeling well and not eating well. Patient also noted to have shortness of breath with concerns of congestive heart failure. Patient not seen by physicians in quite some time has had no follow-up and has no primary care provider. Patient did also have elevated pro calcitonin on admission and being treated for concerns of unity acquired pneumonia. Patient did have urinary retention requiring indwelling Shaikh catheter with noted significant hematuria. Patient was also continued on IV heparin and transitioned to eliquis for atrial fibrillation with RVR. Patient showing significant improvement in kidney functions and will be following with urology outpatient as patient was noted to have a nodular pr ostate concerns for prostate cancer as well as will be needing a cystoscopy with biopsy as there is concern for neoplasm. Patient has been cleared by consultations for discharge today. Please refer to other consultation notes for further HPI. Currently no reports of chest pain, shortness of breath, or palpitations. Patient is afebrile. No reports of nausea or vomiting and patient is tolerating diet. Patient will be going home on discharge with today. Guarded prognosis and high risk for readmissions as patient continues to have hematuria with extreme anxiety and concerns with indwelling Shaikh catheter. Patient will continue on antibiotics as well and close outpatient follow-up. Resources provided for primary care follow-up and patient has an appointment with urology. Physical exam: Gen: This is a 83-year-old male who is awake, alert and oriented 3, well- developed, well-nourished, thin built, elderly appearing, cachectic HEENT: Head is atraumatic, normocephalic. Pupils equal, round. Sclerae is anicteric. NECK: Supple. No JVD. No lymphadenopathy. No thyromegaly. LUNGS: Clear to auscultation. No wheezes or rhonchi. No intercostal retractions. HEART: Regular rate and rhythm. No murmur. ABDOMEN: Soft. Bowel sounds are present. No masses. No tenderness. EXTREMITIES: No pedal edema. No calf tenderness. mild bilateral lower extremity swelling with atrophy noted NEUROLOGICAL: Patient is awake, alert and oriented x3. Cranial nerves 2 through 12 are grossly intact. diffusely weak Please refer to medication reconciliation sheet for a list of medications. The impression and plan of care has been dictated by Paradise Mcgowan, Nurse Practitioner as directed. Dr. Layla MD I have performed a history and examination and MDM of this patient, discussed the same with the dictator, and agree with the dictator's assessment and plan as written ,documented as a scribe. Based on total visit time, I have performed more than 50% of the visit. Patient Condition at Discharge: Fair Plan - Discharge Summary Discharge Rx Participant: Yes New Discharge Prescriptions: New Apixaban [Eliquis] 2.5 mg PO BID 30 Days #60 tab Metoprolol Tartrate [Lopressor] 12.5 mg PO BID #60 tab Cefdinir [Omnicef] 300 mg PO BID 7 Days #14 cap Acetaminophen Tab [Tylenol] 650 mg PO Q6HR PRN tab PRN Reason: Fever And/ Or Pain Continue Famotidine [Pepcid] 20 mg PO BID Discontinued Azithromycin [Zithromax Z Pack] See Taper PO DIRECTED Discharge Medication List Famotidine [Pepcid] 20 mg PO BID 06/02/23 [History] Acetaminophen Tab [Tylenol] 650 mg PO Q6HR PRN tab 06/05/23 [Rx] Apixaban [Eliquis] 2.5 mg PO BID 30 Days #60 tab 06/05/23 [Rx] Cefdinir [Omnicef] 300 mg PO BID 7 Days #14 cap 06/05/23 [Rx] Metoprolol Tartrate [Lopressor] 12.5 mg PO BID #60 tab 06/05/23 [Rx] Follow up Appointment(s)/Referral(s): Hiro Noel MD [STAFF PHYSICIAN] - 1 Week (Per Dr. Noel's office they will call the patient sometime next week to schedule and appointment ) Alexander Arteaga MD [Medical Doctor] - 1 Week Edvin Fox MD [STAFF PHYSICIAN] - 1 Week (Dr. Fox's office states they will call the patient with a follow up appointment ) Ambulatory/Diagnostic Orders: Complete Blood Count w/diff [LAB.AMB] Time Frame: 3 Days, Location: None Selected Patient Instructions/Handouts: A-fib (Atrial Fibrillation) (DC), Shaikh Catheter Placement and Care (DC), Shaikh Catheter Placement and Care (GEN) Activity/Diet/Wound Care/Special Instructions: Dr. Rich to see prior to discharge Activity Limited until follow-up Follow-up and establish with primary care provider on discharge Follow-up with urology in 1-2 weeks Follow-up cardiology outpatient in 1-2 weeks Continue taking medications as prescribed Complete all of antibiotic Recommend repeat labs to monitor hemoglobin in the next 2-3 days Continue with indwelling Shaikh catheter until follow-up with urology Discharge Disposition: HOME WITH HOME HEALTH SERVICES
== END 2023-06-05 17:30 | disposition home health service (06) | DRG 682 ==
LOC: EC 10:55 → 3SCARD 14:35 → 2SICU 06-03 05:47
PROVIDERS: ADMIT Internal Medicine; ATTEND Internal Medicine
DX: N17.0 Acute kidney failure with tubular necrosis (principal); I50.21 Acute systolic (congestive) heart failure; I48.19 Other persistent atrial fibrillation; I27.20 Pulmonary hypertension, unspecified; I11.0 Hypertensive heart disease with heart failure; J18.9 Pneumonia, unspecified organism; E87.20 Acidosis, unspecified; E87.1 Hypo-osmolality and hyponatremia; N13.30 Unspecified hydronephrosis; E86.1 Hypovolemia; I49.3 Ventricular premature depolarization; E87.6 Hypokalemia; E83.42 Hypomagnesemia; N32.89 Other specified disorders of bladder; N40.0 Benign prostatic hyperplasia without lower urinary tract symptoms; R63.0 Anorexia; R32 Unspecified urinary incontinence; F41.9 Anxiety disorder, unspecified; R31.0 Gross hematuria; Z20.822 Contact with and (suspected) exposure to COVID-19; Z86.16 Personal history of COVID-19; Z68.24 Body mass index [BMI] 24.0-24.9, adult
CPT/HCPCS: 36415; 51702; 71045; 71046; 76770; 78582; 80048; 80053; 83605; 83735; 83880; 84100; 84132; 84145; 84153; 84443; 84481; 84484; 85025; 85027; 85379; 85610; 85730; 87040; 87449; 87635; 93005; 93306; 94760; 96365; 96366; 96367; 96375; 96376; 99285

== ENCOUNTER 2023-06-05 22:09 | Emergency (ER) | payer MEDICARE ==
[2023-06-05 23:43] VITALS: RESP 16
--- NOTE | 2023-06-06 00:37 | ED ---
Male Urogenital HPI - General Chief complaint: Urogenital Stated complaint: Catheter Malfunction Time Seen by Provider: 06/05/23 23:32 Source: patient Mode of arrival: wheelchair Limitations: no limitations - History of Present Illness Initial comments: 82-year-old male presenting with chief complaint of Shaikh catheter malfunction. Patient was discharged today from our facility and states that he has not had output since about 5:30 this evening. He is to follow up with Dr. Fox. Patient has had gross hematuria throughout his entire hospital stay and at discharge. No abdominal pain, nausea, vomiting. - Related Data Home Medications Medication Instructions Recorded Confirmed Famotidine [Pepcid] 20 mg PO BID 06/02/23 06/02/23 Previous Rx's Medication Instructions Recorded Acetaminophen Tab [Tylenol] 650 mg PO Q6HR PRN tab 06/05/23 Apixaban [Eliquis] 2.5 mg PO BID 30 Days #60 tab 06/05/23 Cefdinir [Omnicef] 300 mg PO BID 7 Days #14 cap 06/05/23 Metoprolol Tartrate [Lopressor] 12.5 mg PO BID #60 tab 06/05/23 Allergies Allergy/AdvReac Type Severity Reaction Status Date / Time No Known Allergies Allergy Verified 06/02/23 14:44 Review of Systems ROS Statement: Those systems with pertinent positive or pertinent negative responses have been documented in the HPI. ROS Other: All systems not noted in ROS Statement are negative. Past Medical History Past Medical History: No Reported History Additional Past Medical History / Comment(s): new afib. this admission (06/03/23) History of Any Multi-Drug Resistant Organisms: None Reported Past Surgical History: Appendectomy Additional Past Surgical History / Comment(s): claudia. catearact surg. Past Anesthesia/Blood Transfusion Reactions: No Reported Reaction Additional Past Anesthesia/Blood Transfusion Reaction / Comment(s): never received transfusion Past Psychological History: No Psychological Hx Reported Smoking Status: Never smoker Past Alcohol Use History: Occasional Past Drug Use History: None Reported - Past Family History Father Family Medical History: CVA/TIA Mother Family Medical History: Myocardial Infarction ([place]) General Exam Limitations: no limitations General appearance: alert, in no apparent distress Head exam: Present: atraumatic, normocephalic, normal inspection Eye exam: Present: normal appearance, EOMI Neck exam: Present: normal inspection, full ROM Respiratory exam: Absent: respiratory distress Neurological exam: Present: alert, oriented X3, CN II-XII intact Psychiatric exam: Present: normal affect, normal mood Skin exam: Present: warm, dry, intact, normal color. Absent: rash Course Vital Signs 06/05/23 06/05/23 06/06/23 22:10 23:42 00:59 Temperature 98.3 F 98.2 F Pulse Rate 54 L 57 L 63 Respiratory 18 16 16 Rate Blood Pressure 181/73 164/82 168/91 O2 Sat by Pulse 98 98 97 Oximetry Medical Decision Making - Medical Decision Making Was pt. sent in by a medical professional or institution (, PA, SHIPBOARD INTELLIGENCE ANALYST, urgent care, hospital, or longterm...) When possible be specific @ -No Did you speak to anyone other than the patient for history (EMS, parent, family, police, friend...)? What history was obtained from this source @ -No Did you review nursing and triage notes (agree or disagree)? Why? @ -I reviewed and agree with nursing and triage notes Were old charts reviewed (outside hosp., previous admission, EMS record, old EKG, old radiological studies, urgent care reports/EKG's, longterm records)? Report findings @ -No old charts were reviewed Differential Diagnosis (chest pain, altered mental status, abdominal pain women, abdominal pain men, vaginal bleeding, weakness, fever, dyspnea, syncope, headache, dizziness, GI bleed, back pain, seizure, CVA, palpatations, mental health, musculoskeletal)? @ -not applicable EKG interpreted by me (3pts min.). @ -As above X-rays interpreted by me (1pt min.). @ -None done CT interpreted by me (1pt min.). @ -None done U/S interpreted by me (1pt. min.). @ -None done What testing was considered but not performed or refused? (CT, X-rays, U/S, labs)? Why? @ -None What meds were considered but not given or refused? Why? @ -None Did you discuss the management of the patient with other professionals (professionals i.e. , PA, SHIPBOARD INTELLIGENCE ANALYST, lab, RT, psych nurse, secondary social studies teacher, echocardiography technologist, teacher, occupational medicine officer, case fitter)? Give summary @ -No Was smoking cessation discussed for >3mins.? @ -No Was critical care preformed (if so, how long)? @ -No Were there social determinants of health that impacted care today? How? (Homelessness, low income, unemployed, alcoholism, drug addiction, transportation, low edu. Level, literacy, decrease access to med. care, senior care, rehab)? @ -No Was there de-escalation of care discussed even if they declined (Discuss DNR or withdrawal of care, Hospice)? DNR status @ -No What co-morbidities impacted this encounter? (DM, HTN, Smoking, COPD, CAD, Cancer, CVA, ARF, Chemo, Hep., AIDS, mental health diagnosis, sleep apnea, morbid obesity)? @ -None Was patient admitted / discharged? Hospital course, mention meds given and route, prescriptions, significant lab abnormalities, going to OR and other pertinent info. @ -82-year-old male presenting with chief complaint of Shaikh catheter malfunction, patient is unable to get any output since 5:30 this evening. No abdominal pain or vomiting. Patient had a catheter placed during recent admission, he was discharged today. He has gross hematuria which has been present the entire time the catheter has been in place. The nurse irrigated the Shaikh catheter and large clots were expelled, patient then drained 300 mL. On bladder scan post void he only had 32 mL in the bladder. Patient is instructed to follow-up with his urologist Dr. Fox. Follow-up with PCP. Report back to ER with any new or worsening symptoms. Discussed return parameters and answered all questions. Patient conveyed verbal understanding and agreed to the plan. I discussed this case in detail with my attending Dr. Reyes Undiagnosed new problem with uncertain prognosis? @ -No Drug Therapy requiring intensive monitoring for toxicity (Heparin, Nitro, Insulin, Cardizem)? @ -No Were any procedures done? @ -No Diagnosis/symptom? @ -Shaikh catheter obstruction Acute, or Chronic, or Acute on Chronic? @ -Acute Uncomplicated (without systemic symptoms) or Complicated (systemic symptoms)? @ -Uncomplicated Side effects of treatment? @ -No Exacerbation, Progression, or Severe Exacerbation? @ -No Poses a threat to life or bodily function? How? (Chest pain, [place], [place], pneumonia, PE, COPD, DKA, ARF, appy, cholecystitis, CVA, Diverticulitis, Homicidal, Suicidal, threat to staff... and all critical care pts) @ -No Disposition Clinical Impression: Complication, blocked Shaikh catheter Disposition: HOME SELF-CARE Condition: Good Instructions (If sedation given, give patient instructions): Shaikh Catheter Placement and Care (ED) Additional Instructions: Follow-up with PCP and urology. Report back to ER with any new or worsening symptoms. Is patient prescribed a controlled substance at d/c from ED?: No Referrals: None,Stated [Primary Care Provider] - 1-2 days Edvin Fox MD [STAFF PHYSICIAN] - 1-2 days Time of Disposition: 00:37
[2023-06-06 01:05] VITALS: BP 168/91; PULSE 63; TEMP 98.2
== END 2023-06-06 00:59 | disposition home or self-care (01) ==
LOC: EC 22:09
DX: T85.618A Breakdown (mechanical) of other specified internal prosthetic devices, implants and grafts, initial encounter (principal)
CPT/HCPCS: 51702; 99283

== ENCOUNTER 2023-06-06 13:38 | Emergency (ER) | payer MEDICARE ==
[2023-06-06 13:44] VITALS: RESP 18; TEMP 98.1
--- NOTE | 2023-06-06 14:15 | ED ---
Male Urogenital HPI - General Chief complaint: Urogenital Stated complaint: Cath Issues Blood in the Bag Time Seen by Provider: 06/06/23 13:48 Source: patient, family, RN notes reviewed Mode of arrival: ambulatory Limitations: no limitations - History of Present Illness Initial comments: This is an 82-year-old male who presents to the emergency department for problems with his Shaikh catheter not draining. Patient was evaluated here early this morning for the same problem, and states that since discharge, the catheter had not been draining. He does continue to have blood present, and he and his were told by urology to expect this. He is still taking the Eliquis. He is currently being treated with an antibiotic. Denies any associated abdominal pain. - Related Data Home Medications Medication Instructions Recorded Confirmed Famotidine [Pepcid] 20 mg PO BID 06/02/23 06/02/23 Previous Rx's Medication Instructions Recorded Acetaminophen Tab [Tylenol] 650 mg PO Q6HR PRN tab 06/05/23 Apixaban [Eliquis] 2.5 mg PO BID 30 Days #60 tab 06/05/23 Cefdinir [Omnicef] 300 mg PO BID 7 Days #14 cap 06/05/23 Metoprolol Tartrate [Lopressor] 12.5 mg PO BID #60 tab 06/05/23 Allergies Allergy/AdvReac Type Severity Reaction Status Date / Time No Known Allergies Allergy Verified 06/02/23 14:44 Review of Systems ROS Statement: Those systems with pertinent positive or pertinent negative responses have been documented in the HPI. ROS Other: All systems not noted in ROS Statement are negative. Past Medical History Past Medical History: No Reported History Additional Past Medical History / Comment(s): new afib. this admission (06/03/23) History of Any Multi-Drug Resistant Organisms: None Reported Past Surgical History: Appendectomy Additional Past Surgical History / Comment(s): claudia. catearact surg. Past Anesthesia/Blood Transfusion Reactions: No Reported Reaction Additional Past Anesthesia/Blood Transfusion Reaction / Comment(s): never received transfusion Past Psychological History: No Psychological Hx Reported Smoking Status: Never smoker Past Alcohol Use History: Occasional Past Drug Use History: None Reported - Past Family History Father Family Medical History: CVA/TIA Mother Family Medical History: Myocardial Infarction ([place]) General Exam Limitations: no limitations General appearance: alert, in no apparent distress Head exam: Present: atraumatic, normocephalic, normal inspection Respiratory exam: Present: normal lung sounds bilaterally. Absent: respiratory distress, wheezes, rales, rhonchi, stridor Cardiovascular Exam: Present: regular rate, normal rhythm, normal heart sounds. Absent: systolic murmur, diastolic murmur, rubs, gallop, clicks GI/Abdominal exam: Present: soft, normal bowel sounds. Absent: distended, tenderness, guarding, rebound, rigid Neurological exam: Present: alert, oriented X3, CN II-XII intact Psychiatric exam: Present: normal affect, normal mood Skin exam: Present: warm, dry, intact, normal color. Absent: rash Course Vital Signs 06/06/23 06/06/23 13:42 14:56 Temperature 98.1 F Pulse Rate 66 67 Respiratory 18 18 Rate Blood Pressure 171/67 145/87 O2 Sat by Pulse 98 Oximetry Medical Decision Making - Medical Decision Making This is an 82-year-old male who presents to the emergency department for problems with his Shaikh catheter. Was pt. sent in by a medical professional or institution? @ -No Did you speak to anyone other than the patient for history? @ -No Did you review nursing and triage notes? @ -Yes, and I agree, it is accurate with regards to the patient's symptoms. Were old charts reviewed? @ -No Differential Diagnosis? @ -Differential Shaikh Catheter Problem: Blood clots, malposition, UTI, tumor, this is not meant to be an all-inclusive list. EKG interpreted by me (3pts min.)? @ -Not obtained X-rays interpreted by me (1pt min.)? @ -Not obtained CT interpreted by me (1pt min.)? @ -Not obtained U/S interpreted by me (1pt. min.)? @ -Not obtained What testing was considered but not performed? (CT, X-rays, U/S, labs)? Why? @ -None What meds were considered but not given? Why? @ -None Did you discuss the management of the patient with other professionals? @ -No Did you reconcile home meds? @ -No Was smoking cessation discussed for >3mins.? @ -No Was critical care preformed (if so, how long)? @ -No Were there social determinants of health that impacted care today? How? (Homelessness, low income, unemployed, alcoholism, drug addiction, transportation, low edu. Level, literacy, decrease access to med. care, longterm, rehab)? @ -No Was there de-escalation of care discussed even if they declined? (Discuss DNR or withdrawal of care, Hospice)? @ -No What co-morbidities impacted this encounter? (DM, HTN, Smoking, COPD, CAD, Cancer, CVA, Hep., AIDS, mental health diagnosis, sleep apnea, morbid obesity)? @ -Bladder mass, atrial fibrillation Was patient admitted / discharged? @ -Discharged. His Shaikh catheter was flushed, and over 800 cc of urine was expelled into the bag. The urine was largely composed of blood. Urinalysis does reveal some white blood cells, however the patient is already taking an antibiotic and will continue to do so. Urine was sent for culture. His was taught how to flush the Shaikh catheter, so that they may try this at home if it stops draining again. He is also advised to hold his Eliquis for 2 days to see if that helps with the amount of blood present. He will otherwise follow up with urology as scheduled later this week. Undiagnosed new problem with uncertain prognosis? @ -None Drug Therapy requiring intensive monitoring for toxicity (Heparin, Nitro, Insulin, Cardizem)? @ -None Were any procedures done? @ -None Diagnosis/symptom? @ -Hematuria, Shaikh catheter problem Acute, or Chronic, or Acute on Chronic? @ -Acute Uncomplicated (without systemic symptoms) or Complicated (systemic symptoms)? @ -Uncomplicated Side effects of treatment? @ -None Exacerbation, Progression, or Severe Exacerbation] @ -Not applicable Poses a threat to life or bodily function? @ -No Return precautions reviewed in depth, the patient is instructed to return to the emergency department with any new, worsening, or concerning symptoms. Patient verbalized understanding. This case was discussed in detail with the attending ED physician, Dr. Gongora. Presentation, findings, and treatment plan discussed in detail as well. - Lab Data Lab Results 06/06/23 Range/Units 14:05 Urine Color Red Urine Appearance Cloudy (Clear) Urine pH 6.0 (5.0-8.0) Ur Specific [place] 1.015 (1.001-1.035) Urine Protein 2+ H (Negative) Urine Glucose (UA) Negative (Negative) Urine Ketones Negative (Negative) Urine Blood Large H (Negative) Urine Nitrite Negative (Negative) Urine Bilirubin Negative (Negative) Urine Urobilinogen <2.0 (<2.0) mg/dL Ur Leukocyte Esterase Moderate H (Negative) Urine RBC >182 H (0-5) /hpf Urine WBC 38 H (0-5) /hpf Urine Bacteria Rare H (None) /hpf Urine Mucus Rare H (None) /hpf Disposition Clinical Impression: Shaikh catheter problem, Hematuria Disposition: HOME SELF-CARE Instructions (If sedation given, give patient instructions): *Sur[facility] - Shaikh Catheter Instructions, Shaikh Catheter Placement and Care (ED) Additional Instructions: Return to the emergency department with any new, worsening, or concerning symptoms. If the Shaikh catheter bag is not draining, you can try flushing it at home. Hold the Eliquis for 2 days. Follow up with Dr. Fox as scheduled. Is patient prescribed a controlled substance at d/c from ED?: No Referrals: None,Stated [Primary Care Provider] - 1-2 days
[2023-06-06 14:57] VITALS: BP 145/87; PULSE 67
[2023-06-06 15:26] LABS: Appearance,Urine Cloudy (Clear); Bacteria,Urine Rare /hpf; Bilirubin,Urine Negative (Negative); Blood,Urine Large (Negative); Color,Urine Red; Glucose,Urine (UA) Negative (Negative); Ketones,Urine Negative (Negative); Leukocyte Esterase,Urine Moderate (Negative); Mucus,Urine Rare /hpf; Nitrite,Urine Negative (Negative); Protein,Urine 2+ (Negative); RBC,Urine >182 /hpf (0-5); Specific Gravity,Urine 1.015 (1.001-1.035); Urobilinogen,Urine <2.0 mg/dL (<2.0); WBC,Urine 38 /hpf (0-5)
== END 2023-06-06 14:58 | disposition home or self-care (01) ==
LOC: EC 13:38
DX: T83.091A Other mechanical complication of indwelling urethral catheter, initial encounter (principal); I48.91 Unspecified atrial fibrillation; Z79.899 Other long term (current) drug therapy
CPT/HCPCS: 81001; 87086; 99283

== ENCOUNTER → 2023-06-08 | Outpatient (CLI) | payer MEDICARE ==
[2023-06-08 17:25] LABS: Basophils # (A) 0.06 X 10*3/uL (0.00-0.10); Basophils % (A) 0.5 %; Eosinophils # (A) 0.72 X 10*3/uL (0.04-0.35); Eosinophils % (A) 5.6 %; HCT 34.1 % (39.6-50.0); HGB 10.8 d/dL (13.0-17.0); Lymphocytes # (A) 1.45 X 10*3/uL (0.90-5.00); Lymphocytes % (A) 11.2 %; MCH 32.8 pg (27.0-32.0); MCHC 31.7 d/dL (32.0-37.0); MCV 103.6 FL (80.0-97.0); Mean Platelet Volume 10.7 FL (9.5-12.2); Monocytes # (A) 0.78 X 10*3/uL (0.20-1.00); NRBC Per 100 WBC 0 X 10*3/uL (0.00-0.01); Neutrophils # (A) 9.75 X 10*3/uL (1.80-7.70); Neutrophils % (A) 75.4 %; Platelet Count 362 X 10*3/uL (140-440); RBC 3.29 X 10*6/uL (4.40-5.60); RDW 13.6 % (11.5-14.5); WBC 12.93 X 10*3/uL (4.50-10.00)
== END | disposition home or self-care (01) ==
LOC: LABWHC1 13:23
PROVIDERS: ATTEND Registered Nurse
DX: R31.9 Hematuria, unspecified (principal)
CPT/HCPCS: 36415; 85025

== ENCOUNTER → 2023-07-10 | Outpatient (CLI) | payer MEDICARE ==
[2023-07-10 08:33] LABS: African American GFR (CKD) 79 (>60 ml/min/1.73 sqM); Blood Urea Nitrogen 26 mg/dL (9-20); Non-African American GFR(CKD) 68 (>60 ml/min/1.73 sqM)
--- NOTE | 2023-07-10 10:34 | CT ---
EXAMINATION TYPE: CT abdomen pelvis w con DATE OF EXAM: 07/10/2023 COMPARISON: None available. HISTORY: Prostate cancer. CT DLP: 613.1 mGycm Automated exposure control for dose reduction was used. TECHNIQUE: Helical acquisition of images was performed from the lung bases through the pelvis. CONTRAST: Performed with Oral Contrast and with IV Contrast, patient injected with 100 mL of Isovue 300. FINDINGS: LOWER CHEST : There are small bilateral pleural effusions. The lung bases otherwise appear clear. Th ere are moderate partially visualized coronary calcifications and moderate cardiomegaly. ABDOMEN: Liver and Biliary system: Normal. Adrenal glands: Normal. Kidneys and ureters: There are no renal stones or hydronephrosis. No ureteral stones are present.. Spleen: Normal. Pancreas: Normal. Gallbladder: Normal. Lymph nodes, Peritoneum and mesentery: There is no mesenteric or retroperitoneal lymphadenopathy. Gastrointestinal tract: There are no dilated loops of bowel or free intraperitoneal air. . The appe ndix is normal. Aorta/IVC: No aortic aneurysm.. IVC normal. Abdominal wall: Normal. PELVIS: Fluid: There is no free fluid in the pelvis. Lymph Nodes: There is no pelvic or inguinal lymphadenopathy.. Urinary bladder: The urinary bladder contains a Shaikh catheter. There is a right lateral bladder div erticulum. The prostate is mildly enlarged indenting the base of the bladder.. BONES: Large areas of sclerosis are seen within the posterior aspect of the iliac bones bilaterally which is suspicious for osteosclerotic metastatic disease. Additional area of sclerosis along the pos terior margin of the L1 vertebral body is likely related to metastatic disease as well.. ADDITIONAL SIGNIFICANT FINDINGS: None. IMPRESSION: 1. Several areas of sclerosis within the bones is suspicious for osteosclerotic metastatic disease. 2. No additional evidence of metastatic disease seen within the abdomen or pelvis. 3. Prostamegaly. 4. Bilateral pleural effusions.
== END | disposition home or self-care (01) ==
LOC: RADCTMAIN 07:56
PROVIDERS: ATTEND Urology
DX: C61 Malignant neoplasm of prostate (principal); N40.0 Benign prostatic hyperplasia without lower urinary tract symptoms; J90 Pleural effusion, not elsewhere classified; M89.8X8 Other specified disorders of bone, other site
CPT/HCPCS: 82565; 84520; 74177; 36415; Q9967

== ENCOUNTER → 2023-07-23 | Outpatient (CLI) | payer MEDICARE ==
--- NOTE | 2023-07-23 14:51 | NM ---
EXAMINATION TYPE: NM bone scan whole body DATE OF EXAM: 07/23/2023 COMPARISON: CT scan 07/10/2023 CLINICAL INDICATION: Male, 83 years old with history of C61 PROSTATE CA; Delayed whole-body scanning was performed following the injection of 22.8 mCi Tc 99m MDP. Images acq uired 3 hours post injection. FINDINGS: There is multifocal mild increased density areas of abnormal uptake involving the vertebral column, p osterior mid left rib cage, anterior upper left rib cage There is intense abnormal uptake involving the sacrum, left acetabulum, left femur and right pubic ra mi suspicious for metastases Abnormal uptake involving upper lumbar spine appears to correspond to a area of abnormal sclerosis by recent CT scan also suspicious for metastasis. IMPRESSION: 1. Findings involving the lumbar vertebral column and pelvic bones are suspicious for metastasis conc ordant with CT findings. 2. Nonspecific findings involving the rib cage and mid thoracic spine recommend x-ray correlation.
== END | disposition home or self-care (01) ==
LOC: RADNMMAIN 10:24
PROVIDERS: ATTEND Urology
DX: C61 Malignant neoplasm of prostate (principal); R93.7 Abnormal findings on diagnostic imaging of other parts of musculoskeletal system
CPT/HCPCS: 78306; A9503

== ENCOUNTER 2023-10-07 10:44 | Emergency (ER) | payer MEDICARE ==
--- NOTE | 2023-10-07 11:10 | ED ---
General Adult HPI - General Chief complaint: Urogenital Stated complaint: cath pain Time Seen by Provider: 10/07/23 10:58 Source: patient, family, RN notes reviewed Mode of arrival: ambulatory Limitations: no limitations - History of Present Illness Initial comments: Patient is a pleasant 83-year-old male presenting to the emergency department with catheter problems. Patient got out of bed around 6 AM this morning. Patient suddenly pulled out his catheter part way. Patient has not had any urine output since that time. Patient does have mild discomfort in the upper penile region. No history of similar problems previously however patient is dependent on indwelling catheter. - Related Data Home Medications Medication Instructions Recorded Confirmed Famotidine [Pepcid] 20 mg PO BID 06/02/23 06/02/23 Previous Rx's Medication Instructions Recorded Acetaminophen Tab [Tylenol] 650 mg PO Q6HR PRN tab 06/05/23 Apixaban [Eliquis] 2.5 mg PO BID 30 Days #60 tab 06/05/23 Cefdinir [Omnicef] 300 mg PO BID 7 Days #14 cap 06/05/23 Metoprolol Tartrate [Lopressor] 12.5 mg PO BID #60 tab 06/05/23 Allergies Allergy/AdvReac Type Severity Reaction Status Date / Time No Known Allergies Allergy Verified 10/07/23 10:51 Review of Systems ROS Statement: Those systems with pertinent positive or pertinent negative responses have been documented in the HPI. ROS Other: All systems not noted in ROS Statement are negative. Constitutional: Denies: fever Eyes: Denies: eye pain ENT: Denies: ear pain Respiratory: Denies: cough Cardiovascular: Denies: chest pain Endocrine: Denies: fatigue Genitourinary: Reports: as per HPI Past Medical History Past Medical History: No Reported History, Atrial Fibrillation, Hypertension Additional Past Medical History / Comment(s): new afib. this admission (06/03/23) History of Any Multi-Drug Resistant Organisms: None Reported Past Surgical History: Appendectomy Additional Past Surgical History / Comment(s): claudia. catearact surg. Past Anesthesia/Blood Transfusion Reactions: No Reported Reaction Additional Past Anesthesia/Blood Transfusion Reaction / Comment(s): never received transfusion Past Psychological History: No Psychological Hx Reported Smoking Status: Never smoker Past Alcohol Use History: Occasional Past Drug Use History: None Reported - Past Family History Father Family Medical History: CVA/TIA Mother Family Medical History: Myocardial Infarction (MD) General Exam Limitations: no limitations General appearance: alert, in no apparent distress Neck exam: Present: normal inspection Respiratory exam: Present: normal lung sounds bilaterally Cardiovascular Exam: Present: regular rate, normal rhythm GI/Abdominal exam: Present: soft, tenderness (Mild suprapubic tenderness) exam: Present: normal inspection, other (Shaikh catheter present) Neurological exam: Present: alert Psychiatric exam: Present: normal affect, normal mood Skin exam: Present: normal color Course Vital Signs 10/07/23 10:45 Temperature 98.3 F Pulse Rate 54 L Respiratory 18 Rate Blood Pressure 192/87 O2 Sat by Pulse 97 Oximetry Procedures - Procedures Initial comment: Fully catheter balloon was deflated and readjusted with good urine outflow. Medical Decision Making - Medical Decision Making Was pt. sent in by a medical professional or institution (, PA, BLOCKER HEATED METAL FORMS, urgent care, hospital, or alf...) When possible be specific @ -No Did you speak to anyone other than the patient for history (EMS, parent, family, police, friend...)? What history was obtained from this source @ -Family is present that helps provide history as they do manage Shaikh catheter. Did you review nursing and triage notes (agree or disagree)? Why? @ -I reviewed and agree with nursing and triage notes Were old charts reviewed (outside hosp., previous admission, EMS record, old EKG, old radiological studies, urgent care reports/EKG's, alf records)? Report findings @ -No old charts were reviewed Differential Diagnosis (chest pain, altered mental status, abdominal pain women, abdominal pain men, vaginal bleeding, weakness, fever, dyspnea, syncope, headache, dizziness, GI bleed, back pain, seizure, CVA, palpatations, mental health, musculoskeletal)? @ -Differential Abdominal Pain Men: Appendicitis, cholecystitis, diverticulosis, ischemic bowel, pancreatitis, hepatitis, UTI, gastroenteritis, AAA, incarcerated hernia, bowel obstruction, constipation, inflammatory bowel, hepatitis, peptic ulcer disease, splenic infarction, perforated viscus, testicular torsion, this is not meant to be an all-inclusive list EKG interpreted by me (3pts min.). @ -As above X-rays interpreted by me (1pt min.). @ -None done CT interpreted by me (1pt min.). @ -None done U/S interpreted by me (1pt. min.). @ -None done What testing was considered but not performed or refused? (CT, X-rays, U/S, labs )? Why? @ -None What meds were considered but not given or refused? Why? @ -None Did you discuss the management of the patient with other professionals (professionals i.e. DrArlene, PA, [employer], lab, RT, psych nurse, licensed master social worker, real estate appraiser, teacher, chief communications officer, keycase assembler)? Give summary @ -No Was smoking cessation discussed for >3mins.? @ -No Was critical care preformed (if so, how long)? @ -No Were there social determinants of health that impacted care today? How? (Homelessness, low income, unemployed, alcoholism, drug addiction, transportation, low edu. Level, literacy, decrease access to med. care, nursing home, rehab)? @ -No Was there de-escalation of care discussed even if they declined (Discuss DNR or withdrawal of care, Hospice)? DNR status @ -No What co-morbidities impacted this encounter? (DM, HTN, Smoking, COPD, CAD, Cancer, CVA, ARF, Chemo, Hep., AIDS, mental health diagnosis, sleep apnea, morbid obesity)? @ -None Was patient admitted / discharged? Hospital course, mention meds given and route, prescriptions, significant lab abnormalities, going to OR and other pertinent info. @ -Shaikh catheter adjusted with good urine outflow and patient symptom-free. Patient will be discharged. Undiagnosed new problem with uncertain prognosis? @ -No Drug Therapy requiring intensive monitoring for toxicity (Heparin, Nitro, Insulin, Cardizem)? @ -No Were any procedures done? @ -catheter adjustment Diagnosis/symptom? @ -Urinary retention, catheter malfunction Acute, or Chronic, or Acute on Chronic? @ -chronic, acute Uncomplicated (without systemic symptoms) or Complicated (systemic symptoms)? @ -default Side effects of treatment? @ -No Exacerbation, Progression, or Severe Exacerbation? @ -No Poses a threat to life or bodily function? How? (Chest pain, USA, MD, pneumonia, PE, COPD, DKA, ARF, appy, cholecystitis, CVA, Diverticulitis, Homicidal, Suicidal, threat to staff... and all critical care pts) @ -No Disposition Clinical Impression: Malfunction of Shaikh catheter Disposition: HOME SELF-CARE Condition: Stable Instructions (If sedation given, give patient instructions): Urinary Retention in Men (ED) Additional Instructions: Please do follow-up to primary care physician in the next day or 2 for recheck. Return for abdominal pain, not passing urine, pelvic pain, fevers, worsening or changing symptoms or any other concerns. Is patient prescribed a controlled substance at d/c from ED?: No Referrals: Alexander Arteaga MD [Primary Care Provider] - 1-2 days Time of Disposition: 11:54
[2023-10-07 11:13] VITALS: RESP 18; TEMP 98.3
[2023-10-07 12:03] VITALS: BP 164/84; PULSE 55
== END 2023-10-07 12:00 | disposition home or self-care (01) ==
LOC: EC 10:44
DX: T83.098A Other mechanical complication of other urinary catheter, initial encounter (principal); I48.91 Unspecified atrial fibrillation; I10 Essential (primary) hypertension
CPT/HCPCS: 99283

== ENCOUNTER 2023-10-18 08:30 | Emergency (ER) | payer MEDICARE ==
[2023-10-18 08:42] VITALS: RESP 18; TEMP 97.9
--- NOTE | 2023-10-18 09:40 | ED ---
Male Urogenital HPI - General Chief complaint: Urogenital Stated complaint: Catheter Issue Time Seen by Provider: 10/18/23 08:42 Source: patient, RN notes reviewed Mode of arrival: ambulatory Limitations: no limitations - History of Present Illness Initial comments: 83-year-old male presents emergency Department with chief complaint of abdominal pain, Shaikh catheter complications, double pain. Patient states that he is having no open of his catheter. He states he's had a catheter for a while states that this last one was been placed 3 weeks ago. Patient denies any fevers or chills states he has abdominal pain and pressure. He also, the left elbow pain swelling and redness. He states his has been ongoing for last several days but is low better today. - Related Data Home Medications Medication Instructions Recorded Confirmed Famotidine [Pepcid] 20 mg PO BID 06/02/23 06/02/23 Previous Rx's Medication Instructions Recorded Acetaminophen Tab [Tylenol] 650 mg PO Q6HR PRN tab 06/05/23 Apixaban [Eliquis] 2.5 mg PO BID 30 Days #60 tab 06/05/23 Cefdinir [Omnicef] 300 mg PO BID 7 Days #14 cap 06/05/23 Metoprolol Tartrate [Lopressor] 12.5 mg PO BID #60 tab 06/05/23 Sulfamethox-Tmp 800-160Mg [Bactrim 1 each PO Q12HR #20 tab 10/18/23 Ds] Allergies Allergy/AdvReac Type Severity Reaction Status Date / Time No Known Allergies Allergy Verified 10/18/23 08:39 Review of Systems ROS Statement: Those systems with pertinent positive or pertinent negative responses have been documented in the HPI. ROS Other: All systems not noted in ROS Statement are negative. Past Medical History Past Medical History: No Reported History, Atrial Fibrillation, Hypertension Additional Past Medical History / Comment(s): new afib. this admission (06/03/23) History of Any Multi-Drug Resistant Organisms: None Reported Past Surgical History: Appendectomy Additional Past Surgical History / Comment(s): claudia. catearact surg. Past Anesthesia/Blood Transfusion Reactions: No Reported Reaction Additional Past Anesthesia/Blood Transfusion Reaction / Comment(s): never received transfusion Past Psychological History: No Psychological Hx Reported Smoking Status: Never smoker Past Alcohol Use History: Occasional Past Drug Use History: None Reported - Past Family History Father Family Medical History: CVA/TIA Mother Family Medical History: Myocardial Infarction (MD) General Exam Limitations: no limitations General appearance: alert, in no apparent distress Head exam: Present: atraumatic, normocephalic, normal inspection Eye exam: Present: normal appearance, PERRL, EOMI. Absent: scleral icterus, conjunctival injection, periorbital swelling ENT exam: Present: normal exam, mucous membranes moist Neck exam: Present: normal inspection, full ROM. Absent: tenderness, meningismus, lymphadenopathy Respiratory exam: Present: normal lung sounds bilaterally. Absent: respiratory distress, wheezes, rales, rhonchi, stridor Cardiovascular Exam: Present: regular rate, normal rhythm, normal heart sounds. Absent: systolic murmur, diastolic murmur, rubs, gallop, clicks GI/Abdominal exam: Present: soft, tenderness, normal bowel sounds. Absent: distended, guarding, rebound, rigid Extremities exam: Present: other (Left elbow swelling, redness noted there is some swelling and tenderness proximal to the elbow on the medial aspect area pul ses are equal bilaterally) Back exam: Absent: CVA tenderness (R), CVA tenderness (L) Course Vital Signs 10/18/23 10/18/23 10/18/23 08:34 09:51 12:04 Temperature 97.9 F Pulse Rate 55 L 59 L 62 Respiratory 18 18 18 Rate Blood Pressure 173/76 143/77 159/86 O2 Sat by Pulse 97 99 98 Oximetry Medical Decision Making - Medical Decision Making Was pt. sent in by a medical professional or institution (, PA, EXPOSURE MACHINE OPERATOR, urgent care, hospital, or [facility]...) When possible be specific @ -No Did you speak to anyone other than the patient for history (EMS, parent, family, police, friend...)? What history was obtained from this source @ -No Did you review nursing and triage notes (agree or disagree)? Why? @ -I reviewed and agree with nursing and triage notes Were old charts reviewed (outside hosp., previous admission, EMS record, old EKG, old radiological studies, urgent care reports/EKG's, [facility] records)? Report findings @ -No old charts were reviewed Differential Diagnosis (chest pain, altered mental status, abdominal pain women, abdominal pain men, vaginal bleeding, weakness, fever, dyspnea, syncope, headache, dizziness, GI bleed, back pain, seizure, CVA, palpatations, mental health, musculoskeletal)? @ -Urinary retention, Shaikh catheter complication, olecranon bursitis, septic bursitis EKG interpreted by me (3pts min.). @ -None X-rays interpreted by me (1pt min.). @ -X-ray left elbow 3 view soft tissue swelling no acute fracture or abnormality CT interpreted by me (1pt min.). @ -None done U/S interpreted by me (1pt. min.). @ -Ultrasound venous Doppler left arm shows no evidence of acute DVT What testing was considered but not performed or refused? (CT, X-rays, U/S, labs)? Why? @ -None What meds were considered but not given or refused? Why? @ -None Did you discuss the management of the patient with other professionals (professionals i.e. , PA, EXPOSURE MACHINE OPERATOR, lab, RT, psych nurse, social work instructor, multimedia assistant, teacher, digital marketing officer, case management associate)? Give summary @ -No Was smoking cessation discussed for >3mins.? @ -No Was critical care preformed (if so, how long)? @ -No Were there social determinants of health that impacted care today? How? (Homelessness, low income, unemployed, alcoholism, drug addiction, transportation, low edu. Level, literacy, decrease access to med. care, [facility], rehab)? @ -No Was there de-escalation of care discussed even if they declined (Discuss DNR or withdrawal of care, Hospice)? DNR status @ -No What co-morbidities impacted this encounter? (DM, HTN, Smoking, COPD, CAD, Cancer, CVA, ARF, Chemo, Hep., AIDS, mental health diagnosis, sleep apnea, morbid obesity)? @ -None Was patient admitted / discharged? Hospital course, mention meds given and route, prescriptions, significant lab abnormalities, going to OR and other pertinent info. @ -Discharged patient's Shaikh catheter was exchanged by RN. Patient tolerated well states he feels greatly improved. Patient does have trouble swallowing were consistent with olecranon bursitis possible septic bursitis. Patient is placed on Bactrim. Return parameters were discussed. Undiagnosed new problem with uncertain prognosis? @ -No Drug Therapy requiring intensive monitoring for toxicity (Heparin, Nitro, Insulin, Cardizem)? @ -No Were any procedures done? @ -No Diagnosis/symptom? @ -Urinary retention, Shaikh catheter complication, olecranon septic bursitis Acute, or Chronic, or Acute on Chronic? @ -Acute] Uncomplicated (without systemic symptoms) or Complicated (systemic symptoms)? @ -[Uncomplicated Side effects of treatment? @ -No Exacerbation, Progression, or Severe Exacerbation? @ -No Poses a threat to life or bodily function? How? (Chest pain, USA, MD, pneumonia, PE, COPD, DKA, ARF, appy, cholecystitis, CVA, Diverticulitis, Homicidal, Hernández icidal, threat to staff... and all critical care pts) @ -No - Lab Data Result diagrams: 10/18/23 09:40 10/18/23 09:40 Lab Results 10/18/23 10/18/23 10/18/23 Range/Units 09:40 09:40 09:40 WBC 9.4 (3.8-10.6) k/uL RBC 3.89 L (4.30-5.90) m/uL Hgb 12.4 L (13.0-17.5) gm/dL Hct 38.6 L (39.0-53.0) % MCV 99.1 (80.0-100.0) fL MCH 31.9 (25.0-35.0) pg MCHC 32.3 (31.0-37.0) g/dL RDW 13.9 (11.5-15.5) % Plt Count 215 (150-450) k/uL MPV 8.9 Neutrophils % 76 % Lymphocytes % 14 % Monocytes % 5 % Eosinophils % 2 % Basophils % 0 % Neutrophils # 7.1 (1.3-7.7) k/uL Lymphocytes # 1.3 (1.0-4.8) k/uL Monocytes # 0.5 (0-1.0) k/uL Eosinophils # 0.2 (0-0.7) k/uL Basophils # 0.0 (0-0.2) k/uL Sodium 138 (137-145) mmol/L Potassium 3.1 L (3.5-5.1) mmol/L Chloride 101 (98-107) mmol/L Carbon Dioxide 27 (22-30) mmol/L Anion Gap 10 mmol/L BUN 20 (9-20) mg/dL Creatinine 0.93 (0.66-1.25) mg/dL Est GFR (CKD-EPI)AfAm 88 (>60 ml/min/1.73 sqM) Est GFR (CKD-EPI)NonAf 76 (>60 ml/min/1.73 sqM) Glucose 121 H (74-99) mg/dL Uric Acid 5.6 (3.5-8.5) mg/dL Calcium 9.2 (8.4-10.2) mg/dL Total Bilirubin 3.0 H (0.2-1.3) mg/dL AST 25 (17-59) U/L ALT 23 (4-49) U/L Alkaline Phosphatase 108 (38-126) U/L C-Reactive Protein 6.5 H (<1.0) mg/dL Total Protein 7.3 (6.3-8.2) g/dL Albumin 3.8 (3.5-5.0) g/dL Urine Color Yellow Urine Appearance Cloudy (Clear) Urine pH 6.0 (5.0-8.0) Ur Specific Crawford 1.014 (1.001-1.035) Urine Protein 1+ H (Negative) Urine Glucose (UA) Negative (Negative) Urine Ketones Negative (Negative) Urine Blood Large H (Negative) Urine Nitrite Negative (Negative) Urine Bilirubin Negative (Negative) Urine Urobilinogen <2.0 (<2.0) mg/dL Ur Leukocyte Esterase Large H (Negative) Urine RBC >182 H (0-5) /hpf Urine WBC 67 H (0-5) /hpf Urine WBC Clumps Moderate H (None) /hpf Ur Squamous Epith Cells 1 (0-4) /hpf Urine Bacteria Many H (None) /hpf Hyaline Casts 5 H (0-2) /lpf Urine Mucus Rare H (None) /hpf Disposition Clinical Impression: Septic olecranon bursitis of left elbow, Urinary retention Disposition: HOME SELF-CARE Condition: Stable Instructions (If sedation given, give patient instructions): Elbow Bursitis (ED) Additional Instructions: Please return to the Emergency Department if symptoms worsen or any other concerns. Prescriptions: Sulfamethox-Tmp 800-160Mg [Bactrim Ds] 1 each PO Q12HR #20 tab Is patient prescribed a controlled substance at d/c from ED?: No Referrals: Alexander Arteaga MD [Primary Care Provider] - 1-2 days Ava Sharif DO [Doctor of Osteopathic Medicine] - 1-2 days Time of Disposition: 12:01
[2023-10-18 10:05] LABS: Basophils % (A) 0 %; Eosinophils # (A) 0.2 k/uL (0-0.7); Eosinophils % (A) 2 %; HCT 38.6 % (39.0-53.0); HGB 12.4 gm/dL (13.0-17.5); Lymphocytes # (A) 1.3 k/uL (1.0-4.8); Lymphocytes % (A) 14 %; MCH 31.9 pg (25.0-35.0); MCHC 32.3 g/dL (31.0-37.0); MCV 99.1 fL (80.0-100.0); Mean Platelet Volume 8.9; Monocytes # (A) 0.5 k/uL (0-1.0); Monocytes % (A) 5 %; Neutrophils # (A) 7.1 k/uL (1.3-7.7); Neutrophils % (A) 76 %; Platelet Count 215 k/uL (150-450); RBC 3.89 m/uL (4.30-5.90); RDW 13.9 % (11.5-15.5); WBC 9.4 k/uL (3.8-10.6)
[2023-10-18 10:13] LABS: Appearance,Urine Cloudy (Clear); Bacteria,Urine Many /hpf; Bilirubin,Urine Negative (Negative); Blood,Urine Large (Negative); Color,Urine Yellow; Glucose,Urine (UA) Negative (Negative); Hyaline Casts,Urine 5 /lpf (0-2); Ketones,Urine Negative (Negative); Leukocyte Esterase,Urine Large (Negative); Mucus,Urine Rare /hpf; Nitrite,Urine Negative (Negative); Protein,Urine 1+ (Negative); RBC,Urine >182 /hpf (0-5); Specific Gravity,Urine 1.014 (1.001-1.035); Squamous Epithelial Cell,Urine 1 /hpf (0-4); Urobilinogen,Urine <2.0 mg/dL (<2.0); WBC,Urine 67 /hpf (0-5)
[2023-10-18 10:18] LABS: ALT 23 U/L (4-49); AST 25 U/L (17-59); African American GFR (CKD) 88 (>60 ml/min/1.73 sqM); Albumin 3.8 g/dL (3.5-5.0); Alkaline Phosphatase 108 U/L (38-126); Anion Gap 10 mmol/L; Blood Urea Nitrogen 20 mg/dL (9-20); C Reactive Protein 6.5 mg/dL (<1.0); Calcium 9.2 mg/dL (8.4-10.2); Carbon Dioxide 27 mmol/L (22-30); Chloride 101 mmol/L (98-107); Glucose 121 mg/dL (74-99); Non-African American GFR(CKD) 76 (>60 ml/min/1.73 sqM); Potassium 3.1 mmol/L (3.5-5.1); Sodium 138 mmol/L (137-145); Total Protein 7.3 g/dL (6.3-8.2); Uric Acid 5.6 mg/dL (3.5-8.5)
--- NOTE | 2023-10-18 10:49 | XR ---
EXAMINATION TYPE: XR elbow complete LT DATE OF EXAM: 10/18/2023 10:22 AM CLINICAL INDICATION:Male, 83 years old with history of pain; [facility] COMPARISON: TECHNIQUE: The left elbow was examined in AP, lateral, and oblique projections. FINDINGS: Osseous mineralization appears appropriate. No evidence of lytic/blastic bony lesion. Mild/ moderate degenerative changes of the elbow with small ovoid dystrophic calcification seen projected a nterior to the distal humerus. No evidence of fracture, dislocation, or soft tissue swelling is noted . No evidence of joint effusion is present. IMPRESSION: Mild/moderate degenerative changes of the elbow. No evidence of acute fracture.
--- NOTE | 2023-10-18 11:56 | US ---
EXAMINATION TYPE: US venous doppler duplex UE LT DATE OF EXAM: 10/18/2023 COMPARISON: NONE CLINICAL INDICATION: Male, 83 years old with history of pain; Left arm pain and edema SIDE PERFORMED: left Left Arm: No evidence of DVT IMPRESSION: Grayscale, color doppler, spectral doppler imaging performed of the deep veins of the upper extremiti es. There is normal flow, compressibility and vascular waveforms.
[2023-10-18 12:06] VITALS: BP 159/86; PULSE 62
== END 2023-10-18 12:33 | disposition home or self-care (01) ==
LOC: EC 08:30
DX: M70.22 Olecranon bursitis, left elbow (principal); R33.9 Retention of urine, unspecified; I10 Essential (primary) hypertension; I48.91 Unspecified atrial fibrillation; Z79.899 Other long term (current) drug therapy
CPT/HCPCS: 36415; 51702; 80053; 81001; 84550; 85025; 86140; 87086; 99284

== ENCOUNTER 2023-11-19 14:04 | Emergency (ER) | payer MEDICARE ==
--- NOTE | 2023-11-19 14:53 | ED ---
General Adult HPI - General Chief complaint: Urogenital Stated complaint: Abn labs Time Seen by Provider: 11/19/23 14:44 Source: patient Mode of arrival: ambulatory Limitations: no limitations - History of Present Illness Initial comments: Dictation was produced using [employer] dictation software. please excuse any grammatical, word or spelling errors. Chief Complaint: 83-year-old male presents with urinary retention History of Present Illness: Patient 83-year-old male presents to the emergency department urinary retention. Patient had prostate surgery on Thursday. Patient went to his urology follow-up appointment today had his Shaikh catheter removed. He was discharged home told to go to the ER for Shaikh replacement if he is unable to pee in 4 to 6 hours. He tried to urinate and was unable to do so. Patient feels like he needs to urinate. Patient has no other complaints. The ROS documented in this emergency department record has been reviewed and confirmed by me. Those systems with pertinent positive or negative responses have been documented in the HPI. All other systems are other negative and/or noncontributory. - Related Data Home Medications Medication Instructions Recorded Confirmed Famotidine [Pepcid] 20 mg PO BID 06/02/23 06/02/23 Previous Rx's Medication Instructions Recorded Acetaminophen Tab [Tylenol] 650 mg PO Q6HR PRN tab 06/05/23 Apixaban [Eliquis] 2.5 mg PO BID 30 Days #60 tab 06/05/23 Cefdinir [Omnicef] 300 mg PO BID 7 Days #14 cap 06/05/23 Metoprolol Tartrate [Lopressor] 12.5 mg PO BID #60 tab 06/05/23 Sulfamethox-Tmp 800-160Mg [Bactrim 1 each PO Q12HR #20 tab 10/18/23 Ds] Allergies Allergy/AdvReac Type Severity Reaction Status Date / Time No Known Allergies Allergy Verified 10/18/23 08:39 Review of Systems ROS Statement: Those systems with pertinent positive or pertinent negative responses have been documented in the HPI. ROS Other: All systems not noted in ROS Statement are negative. Past Medical History Past Medical History: No Reported History, Atrial Fibrillation, Hypertension Additional Past Medical History / Comment(s): new afib. this admission (06/03/23) History of Any Multi-Drug Resistant Organisms: None Reported Past Surgical History: Appendectomy Additional Past Surgical History / Comment(s): claudia. catearact surg. Past Anesthesia/Blood Transfusion Reactions: No Reported Reaction Additional Past Anesthesia/Blood Transfusion Reaction / Comment(s): never received transfusion Past Psychological History: No Psychological Hx Reported Smoking Status: Never smoker Past Alcohol Use History: Occasional Past Drug Use History: None Reported - Past Family History Father Family Medical History: CVA/TIA Mother Family Medical History: Myocardial Infarction (NH) General Exam - General Exam Comments Initial Comments: PHYSICAL EXAM: General Impression: Alert and oriented x3, not in acute distress HEENT: Normocephalic atraumatic, extra-ocular movements intact, pupils equal and reactive to light bilaterally, mucous membranes moist. Cardiovascular: Heart regular rate and rhythm Chest: Able to complete full sentences, no retractions, no tachypnea Abdomen: abdomen soft, n fullness to the suprapubic abdomen, non-distended, no organomegaly Musculoskeletal: Pulses present and equal in all extremities, no peripheral edema Motor: no focal deficits noted Neurological: CN II-XII grossly intact, no focal motor or sensory deficits noted Skin: Intact with no visualized rashes Psych: Normal affect and mood Limitations: no limitations Course Vital Signs 11/19/23 14:36 Temperature 98 F Pulse Rate 89 Respiratory 20 Rate Blood Pressure 166/67 O2 Sat by Pulse 99 Oximetry Medical Decision Making - Medical Decision Making Was pt. sent in by a medical professional or institution (, PA, RESIST COATER DEVELOPER, urgent care, hospital, or fdc...) When possible be specific @ -No Did you speak to anyone other than the patient for history (EMS, parent, family, police, friend...)? What history was obtained from this source @ -No Did you review nursing and triage notes (agree or disagree)? Why? @ -I reviewed and agree with nursing and triage notes Were old charts reviewed (outside hosp., previous admission, EMS record, old EKG, old radiological studies, urgent care reports/EKG's, fdc records)? Report findings @ -No old charts were reviewed Differential Diagnosis (chest pain, altered mental status, abdominal pain women, abdominal pain men, vaginal bleeding, musculoskeletal, weakness, fever, dyspnea, syncope, headache, dizziness, GI bleed, back pain, seizure, CVA, palpatations, mental health)? @ -Not applicable EKG interpreted by me (3pts min.). @ -None done X-rays interpreted by me (1pt min.). @ -None done CT interpreted by me (1pt min.). @ -None done U/S interpreted by me (1pt. min.). @ -None done What testing was considered but not performed or refused? (CT, X-rays, U/S, labs)? Why? @ -None What meds were considered but not given or refused? Why? @ -None Did you discuss the management of the patient with other professionals (professionals i.e. DrArlene, PA, RESIST COATER DEVELOPER, lab, RT, psych nurse, high school social science teacher, security intern, teacher, drug abuse resistance education officer, onsite case manager)? Give summary @ -No Was smoking cessation discussed for >3mins.? @ -No Was critical care preformed (if so, how long)? @ -No Were there social determinants of health that impacted care today? How? (Homelessness, low income, unemployed, alcoholism, drug addiction, transportation, low edu. Level, literacy, decrease access to med. care, [facility], rehab)? @ -No Was there de-escalation of care discussed even if they declined (Discuss DNR or withdrawal of care, Hospice)? DNR status @ -No What co-morbidities impacted this encounter? (DM, HTN, Smoking, COPD, CAD, Cancer, CVA, ARF, Chemo, Hep., AIDS, mental health diagnosis, sleep apnea, morbid obesity)? @ -None Was patient admitted / discharged? Hospital course, mention meds given and route, prescriptions, significant lab abnormalities, going to OR and other pertinent info. @ -83-year-old male presents to the emergency department for urinary retention. Patient had prostate surgery earlier this week. He had his Shaikh catheter removed today however experiencing urinary retention. Shaikh catheter was replaced. Patient discharged with a follow back up with urology for outpatient management of urinary retention. Undiagnosed new problem with uncertain prognosis? @ -No Drug Therapy requiring intensive monitoring for toxicity (Heparin, Nitro, Insulin, Cardizem)? @ -No Were any procedures done? @ -No Diagnosis/symptom? Acute, or Chronic, or Acute on Chronic? Uncomplicated (without systemic symptoms) or Complicated (systemic symptoms)? @ -Urinary retention Side effects of treatment? @ -No Exacerbation, Progression, or Severe Exacerbation? @ -No Poses a threat to life or bodily function? How? (Chest pain, [place], NH, pneumonia, PE, COPD, DKA, ARF, appy, cholecystitis, CVA, Diverticulitis, Homicidal, Suicidal, threat to staff... and all critical care pts) @ -yes Disposition Clinical Impression: Urinary retention Disposition: HOME SELF-CARE Condition: Good Instructions (If sedation given, give patient instructions): Urinary Retention in Men (ED), Shaikh Catheter Placement and Care (ED) Is patient prescribed a controlled substance at d/c from ED?: No Referrals: Edvin Fox MD [STAFF PHYSICIAN] - 1-2 days Time of Disposition: 14:53
[2023-11-19] MEDS ORDERED: LIDOCAINE 2% URO-JET JELLY 5 ML KIT URETHRAL ONE (15:16)
[2023-11-19 16:21] VITALS: BP 155/73; PULSE 57; RESP 18; TEMP 98.2
== END 2023-11-19 16:05 | disposition home or self-care (01) ==
LOC: EC 14:04
DX: R33.9 Retention of urine, unspecified (principal); I48.91 Unspecified atrial fibrillation; I10 Essential (primary) hypertension
CPT/HCPCS: 51702; 51798; 99283